=== PATIENT | female | born 1930 ===

== ENCOUNTER 2019-03-04 11:57 | Inpatient (IN) | payer MEDICARE, OTHER ==
--- NOTE | 2019-03-04 12:17 | ED PDOC ---
Arrival/HPI - General Time Seen by Provider: 03/04/19 12:04 - History of Present Illness Narrative History of Present Illness (Text): 88 y/o F c PMHx dementia, HTN, HLD p/w shortness of breath prior to arrival. EMS was called with report that patient was gasping for breath. Upon their arrival, EMS reports no shortness of breath and normal vital signs. Patient currently denies any shortness of breath or pain. Family/Social History Family/Social History: No Known Family HX Allergies/Home Meds Allergies/Adverse Reactions: Allergies No Known Allergies Allergy (Verified 03/04/19 12:12) Home Medications: Home Meds Medication Instructions Recorded Confirmed Acetaminophen [Tylenol 325mg tab] 325 mg PO Q4 PRN 03/04/19 03/04/19 Atorvastatin [Lipitor] 20 mg PO HS 03/04/19 03/04/19 Docusate [Colace] 100 mg PO DAILY 03/04/19 03/04/19 Donepezil [Aricept] 10 mg PO HS 03/04/19 03/04/19 Famotidine [Pepcid] 20 mg PO HS 03/04/19 03/04/19 Lisinopril [Zestril] 10 mg PO DAILY 03/04/19 03/04/19 Melatonin 5 mg PO HS 03/04/19 03/04/19 Multivitamin [Daily Keira] 1 tab PO DAILY 03/04/19 03/04/19 Sennosides [Senna] 8.6 mg PO HS 03/04/19 03/04/19 amLODIPine [Norvasc] 10 mg PO DAILY 03/04/19 03/04/19 Review of Systems - Review of Systems Systems not reviewed;Unavailable: Dementia Physical Exam - Physical Exam Narrative Physical Exam (Text): gen nad head nc/at eyes perrl ent mmm neck supple chest no tenderness cv reg rate lungs cta b/l, no wheezing abd soft, nt back no cva tenderness extremities no asymmetrical edema skin no rash neuro alert Vital Signs Temp Pulse Resp BP Pulse Ox 03/04/19 12:08 98.7 F 65 20 100/56 L 98 Medical Decision Making ED Course and Treatment: ekg nsr 63 bpm, no st/t wave changes. differential includes but not limited to chf, pneumonia, acs. copd/asthma/pe unlikely based on physical exam, resolution, and diagnostic tests thus far. 03/04/19 14:14 03/04/19 12:13 Chest X-ray, reviewed by radiologist: IMPRESSION: No active disease. Dr. Shaw saw patient in ED at bedside. Accepts patient to her service with consultation with Dr. Brush for r/o ACS. - RAD Interpretation Radiology Orders: 03/04/19 12:13 CHEST PORTABLE [RAD] Stat Disposition/Present on Arrival - Present on Arrival Any Indicators Present on Arrival: No - Disposition Have Diagnosis and Disposition been Completed?: Yes Diagnosis: Dyspnea, Atypical chest pain Disposition: HOSPITALIZED Disposition Time: 15:00 Patient Plan: Observation, Telemetry Condition: STABLE
--- NOTE | 2019-03-04 13:15 | RAD ---
Date of service: 03/04/2019 HISTORY: dyspnea COMPARISON: No prior. TECHNIQUE: 1 view obtained. FINDINGS: LUNGS: No active pulmonary disease. PLEURA: No significant pleural effusion identified, no pneumothorax apparent. CARDIOVASCULAR: Aortic calcification Normal cardiac size. No pulmonary vascular congestion. OSSEOUS STRUCTURES: No significant abnormalities. VISUALIZED UPPER ABDOMEN: Normal. OTHER FINDINGS: None. IMPRESSION: No active disease.
[2019-03-04 13:21] LABS: BASO # 0.03 K/mm3 (0.0-2.0); BASO % 0.3 % (0.0-3.0); EOS # 0.2 (0.0-0.7); EOS % 2.3 % (1.5-5.0); HEMOGLOBIN 12.6 g/dL (12.0-16.0); LYMPH # 3.3 (1.2-3.4); LYMPH % 36.2 % (22.0-35.0); MEAN CORPUSCULAR HEMOGLOBIN 26.5 pg (25.0-35.0); MEAN CORPUSCULAR HGB CONC 31.6 g/dl (31.0-37.0); MEAN PLATELET VOLUME 9.8 fl (7.0-11.0); MONO # 0.5 (0.1-0.6); RBC 4.75 10^6/uL (3.5-6.1); RED CELL DISTRIBUTION WIDTH 15.9 % (11.5-14.5)
[2019-03-04 13:25] LABS: INR 0.99; PARTIAL THROMBOPLASTIN TIME 23.1 Seconds (26.9-38.3); PROTHROMBIN TIME 11.2 SECONDS (9.4-12.5)
[2019-03-04 13:27] LABS: ALBUMIN 3.4 g/dL (3.0-4.8); ALT/SGPT 35 U/L (7-56); AST/SGOT 22 U/L (14-36); BLOOD UREA NITROGEN 19 mg/dL (7-21); CALCIUM 9.4 mg/dL (8.4-10.5); GFR NON-AFRICAN AMERICAN > 60
[2019-03-04 13:38] LABS: B-TYPE NATRIURETIC PEPTIDE 176 pg/mL (0-450); TROPONIN I < 0.01 ng/mL
[2019-03-04 14:30] LABS: URINE BILIRUBIN NEGATIVE (NEGATIVE); URINE BLOOD NEGATIVE (NEGATIVE); URINE GLUCOSE (UA) NEGATIVE (NEGATIVE); URINE LEUKOCYTE ESTERASE LARGE Leu/uL (NEGATIVE); URINE PROTEIN NEGATIVE mg/dL (<30 mg/dL); URINE UROBILINOGEN 0.2 E.U./dL (<1 E.U./dL)
[2019-03-04 14:33] LABS: URINE APPEARANCE SL CLOUDY (CLEAR); URINE COLOR YELLOW (YELLOW)
[2019-03-04 14:42] LABS: URINE BACTERIA LARGE /hpf; URINE EPITHELIAL CELLS 0 - 2 /hpf (0-5); URINE RBC 0 - 2 /hpf (0-2); URINE WBC 25 - 30 /hpf (0-6)
[2019-03-04 15:32] VITALS: BMI 38.3
[2019-03-04] MEDS: Insulin Reg-LOW-Coverage SC SCH ×2 (16:50→22:30)
--- NOTE | 2019-03-04 19:01 | CARD ---
APPROVED REPORT Date of service: 03/04/2019 EKG Measurement Heart [id number] <Conclusion> Normal sinus rhythm Normal ECG
[2019-03-04] MEDS ORDERED: Pneumococcal 23-Valent Vaccine IM ONE (21:01)
[2019-03-04] MEDS: MELATONIN 5 MG PO SCH (22:30)
--- NOTE | 2019-03-05 03:20 | HP ---
DATE OF EXAM: 03/04/2019 CHIEF COMPLAINTS: Shortness of breath. HISTORY OF PRESENT ILLNESS: Mrs. Elaine Alfonso is an 88-year-old female with past medical history of hypertension, hypercholesterolemia, shortness of breath; arrived by EMS because the patient was gasping for breathing. Upon the arrival, EMS reported that no shortness of breath and normal vitals. The patient currently denies any shortness of breath, no chest pain. No hematuria, no hematochezia. No headache, no dizziness. The patient is a very poor historian. ALLERGIES: THE PATIENT IS NOT ALLERGIC WITH ANY MEDICATIONS. HOME MEDICATIONS: Tylenol, Lipitor, Colace, Aricept, Pepcid, Zestril, and melatonin. HABITS: No smoking. No drugs. No ethanol. FAMILY HISTORY: Father and mother noncontributory. REVIEW OF SYSTEMS: The patient was seen and examined at the bedside in the emergency room, looking comfortable. No fever, no chills. No hematuria or hematochezia. No headache, no dizziness. No chest pain, no palpitation. PHYSICAL EXAMINATION: VITAL SIGNS: Temperature 98.7, pulse 65, respiratory rate 20, blood pressure 100/56, pulse oximetry 98. HEENT: Head: Normocephalic, atraumatic. Eyes: PERRLA. Extraocular muscles are intact. Conjunctivae clear. Nose patent. NECK: Supple. No carotid bruit. No JVD or thyromegaly. CHEST: Bilaterally symmetrical. HEART: S1 and S2 positive. LUNGS: Clear to auscultation. ABDOMEN: Soft. Bowel sounds present. No organomegaly. EXTREMITIES: No edema, no cyanosis. NEUROLOGIC: The patient is awake and alert. Moving all four extremities. No focal deficits. LABORATORY DATA: White blood cells 9.0, hemoglobin 12.6, hematocrit 39.9, platelets 263. Sodium 141, potassium 5.0, BUN 19, creatinine 0.7, glucose 171, magnesium 2.3. ASSESSMENT AND PLAN: Mrs. Elaine Alfonso is an 88-year-old female with hyperglycemia, hypermagnesemia, nitrites positive, leukocytes positive, looks like she has urinary tract infection. Electrocardiogram was done. History of dementia, diabetes mellitus. Chest x-ray done, no active disease as per Dr. Isael Vilchis. History of hypertension, hypercholesterolemia, chronic obstructive pulmonary disease, asthma, came in with dyspnea. We admitted the patient. We will call Pulmonary consult. Restarted his home medications; the patient is getting Aricept for dementia, he started that; aspirin, he started. Put the patient on the sliding scale. Continue Colace for constipation, atorvastatin for hypercholesterolemia, melatonin for insomnia, and Pepcid for gastrointestinal prophylaxis, out of bed, physical therapy. We will follow up. Narda Shaw MD
[2019-03-05 07:24] LABS: HEMOGLOBIN 12.2 g/dL (12.0-16.0); MEAN CORPUSCULAR HEMOGLOBIN 25.7 pg (25.0-35.0); MEAN CORPUSCULAR HGB CONC 30.7 g/dl (31.0-37.0); MEAN PLATELET VOLUME 9.6 fl (7.0-11.0); RBC 4.74 10^6/uL (3.5-6.1); WHITE BLOOD COUNT 7.5 10^3/uL (4.5-11.0)
[2019-03-05 07:39] LABS: BLOOD UREA NITROGEN 18 mg/dL (7-21); GFR NON-AFRICAN AMERICAN > 60; HDL CHOLESTEROL 42 mg/dL (29-60); IRON 58 ug/dL (45-180); LIPASE 32 U/L (23-300)
[2019-03-05 07:47] LABS: B-TYPE NATRIURETIC PEPTIDE 147 pg/mL (0-450)
[2019-03-05 07:48] LABS: % IRON SATURATION 19 % (20-55); TOTAL IRON BINDING CAPACITY 305 ug/dL (265-497)
[2019-03-05 07:49] LABS: LDL CHOLESTEROL 41 mg/dL (0-129)
[2019-03-05] MEDS: Insulin Reg-LOW-Coverage SC SCH ×3 (08:44→17:37)
[2019-03-05] MEDS ORDERED: Albuterol-Ipratrop 3 mg / 0.5 (3 ml) UD IH PRN (09:26)
[2019-03-05] MEDS: Enoxaparin 40 mg Syringe SC SCH (11:56)
[2019-03-05] MEDS: MULTIVITAMIN PO SCH (11:57)
[2019-03-05 12:23] LABS: FOLATE > 20.0 ng/mL
--- NOTE | 2019-03-05 15:38 | CON ---
DATE: 03/05/2019 PULMONARY CONSULT NOTE REFERRING PHYSICIAN: Dr. Narda Shaw. REASON FOR CONSULT: Shortness of breath and chronic lung disease. HISTORY OF PRESENT ILLNESS: This is an 88-year-old female, with past medical history significant for dementia, hypertension, hyperlipidemia, asthma, chronic obstructive pulmonary disease, hypercholesterolemia, and hypertension, who came to the emergency room due to reports that the patient was gasping for air. Upon arrival of EMS, they noted the patient had no shortness of breath and had normal vital signs. Daughter was present in room this morning during assessment and states that the patient was recently treated at [facility] for pneumonia where she was given antibiotics. It is unclear whether or not the patient completed antibiotic therapy. Daughter also reports that the patient was sleeping when she started gasping for air. Currently, no complaints of shortness of breath, chest pain, abdominal pain, nausea, or vomiting. The patient is a poor historian. ALLERGIES: NO KNOWN DRUG ALLERGIES. FAMILY HISTORY: No significant cardiopulmonary disease reported. SOCIAL HISTORY: Nonsmoking. No EtOH abuse. No illicit drug use. REVIEW OF SYSTEMS: Unable to be done. The patient is a poor historian, but no hemoptysis, hematemesis, hematuria, diarrhea, or leg swelling reported from staff or family member. MEDICATIONS: Reviewed. Tylenol 325 every 4 hours p.r.n., Norvasc 10 mg daily, Lipitor 20 mg at bedtime, Colace 100 mg daily, Aricept 10 mg at bedtime, Lovenox 40 mg subcutaneous daily, Pepcid 20 mg at bedtime, Humulin R sliding scale a.c. and at bedtime, lisinopril 10 mg daily, melatonin 5 mg at bedtime, multivitamin 1 tab daily, and Senokot 8.6 at bedtime. PHYSICAL EXAMINATION: GENERAL: No acute distress. VITAL SIGNS: Blood pressure 120/75, pulse 66, temperature 98.2, and oxygen saturation 99% on room air. HEENT: Moist mucous membranes. Crowded airway. NECK: Supple. No JVD. Short and thick. RESPIRATORY: Clear bilaterally. CARDIOVASCULAR: S1 and S2. ABDOMEN: Soft and nontender. No distension. No organomegaly. EXTREMITIES: No bilateral lower extremity edema. The patient verbalizing pain upon palpation to bilateral lower extremity. NEUROLOGIC: Asleep; easily arousable. LABORATORY DATA: Reviewed. WBC 7.5, RBC 4.74, hemoglobin 12.2, hematocrit 39.8, and platelets 247. PT 11.2, INR 0.99, and APTT 23.1. Sodium 144, potassium 4.7, chloride 110, carbon dioxide 28, anion gap 11, BUN 18, creatinine 0.8, GFR greater than 60, POC glucose 116, random glucose 101, hemoglobin A1c 8.8, calcium 9, iron 58, TIBC 305, percent saturation 19, proBNP 147, triglycerides 99, cholesterol 101, LDL cholesterol 41, HDL cholesterol 42, lipase 32, vitamin B12 of 705, folate greater than 20, and TSH 2.38. Urinalysis shows urine nitrate positive, urine leukocyte esterase large, and urine WBC 25-30. Chest x-ray; no active disease. EKG shows normal sinus rhythm. IMPRESSION AND PLAN: The patient with urinalysis which appears possibly the urinary tract infection, has history of dementia, diabetes mellitus, chronic obstructive pulmonary disease, asthma, hypertension, hypercholesterolemia, we will place the patient is on p.r.n. inhaled bronchodilators for shortness of breath. Per family, while sleeping the patient has this chocking or gasping for air episode that could possibly signifies sleep apnea in this patient. We do recommend the patient have sleep study as outpatient in the meanwhile. Sleep apnea precautions, head of bed elevated at 45 degrees. We will order venous Doppler to bilateral lower extremities to rule out deep venous thrombosis. We will order D-dimer to be done. We will place the patient on deep venous thrombosis prophylaxis and Lovenox. Continue gastric prophylaxis. The patient was seen and examined with Dr. Mccarty. Discussed assessment and plan as described above. The patient was seen and examined with Mario Conley, nurse practitioner. Discussed assessment and plan as described above. Thank you for this consult. We will follow with you. Yael Martin APN Carmelina Mccarty MD MTDD
[2019-03-05] MEDS: MELATONIN 5 MG PO SCH (21:22)
--- NOTE | 2019-03-06 00:52 | PN ---
DATE: 03/05/2019 SUBJECTIVE: The patient was seen and examined at the bedside on 03/05/2019. Looking comfortable. Daughter was sitting on the bedside. No fever. No chills. No hematuria. No hematochezia. No headache. No dizziness. No chest pain. No palpitations. PHYSICAL EXAMINATION: VITAL SIGNS: Temperature 98.2, pulse 60, blood pressure 120/75, respiratory rate 19. HEENT: Head: Normocephalic, atraumatic. Eyes: PERRLA. Extraocular muscles intact. Conjunctiva clear. Nose patent. Mucous membranes moist. NECK: Supple. No carotid bruits. No JVD or thyromegaly. CHEST: Bilaterally symmetrical. HEART: S1 and S2 positive. LUNGS: Clear to auscultation. ABDOMEN: Soft. Bowel sounds present. No organomegaly. EXTREMITIES: No edema. No cyanosis. NEUROLOGICAL: The patient is awake and alert. Moving all four extremities. No focal deficits. MEDICATIONS: Aricept, Colace, insulin, Lipitor, Lovenox, melatonin, Pepcid, Senokot, Tylenol, Zestril. LABORATORY DATA: White blood cells 7.5, hemoglobin 12.2, hematocrit 39.8, platelets 247. Glucose 241, 183. ASSESSMENT AND PLAN: Mrs. Elaine Alfonso is an 88-year-old lady with hyperglycemia, uncontrolled diabetes mellitus, hemoglobin A1c is 8.8, iron deficiency, proteinuria, urinary tract infection. cultures were done, results are pending. History of dementia, also sleep apnea syndrome, hypertension, hypercholesterolemia. the patient is on bronchodilators. Appreciated the sleep specialist and wire fence builder's input. They ordered D-dimer. Gastrointestinal and deep venous thrombosis prophylaxis. Repeat labs. We will follow up. Narda Shaw MD DOMINICK
[2019-03-06] MEDS: Insulin Reg-LOW-Coverage SC SCH ×4 (08:29→22:26)
[2019-03-06] MEDS: Enoxaparin 40 mg Syringe SC SCH (09:47)
[2019-03-06] MEDS: MULTIVITAMIN PO SCH (09:51)
[2019-03-06] MEDS ORDERED: cefTRIAXone 1 gm 1 GM/100 ML BAG IVPB SCH (10:00)
--- NOTE | 2019-03-06 11:07 | US ---
HISTORY: Leg pain and swelling. Evaluate for DVT PHYSICIAN(S): Rory Herrmann MD. TECHNIQUE: Duplex sonography and color-flow Doppler with graded compression were used to evaluate the deep venous systems of both lower extremities. Imaging is limited due to the patient's inability to cooperate FINDINGS: The visualized deep venous systems of both lower extremities are sonographically normal and compressible. Normal wave forms and augmentation are seen. There is no sonographic evidence for deep venous thrombosis in the visualized segments of both lower extremities. IMPRESSION: No sonographic evidence for deep venous thrombosis in the visualized segments of both lower extremities. Limited study.
[2019-03-06] MEDS ORDERED: Sodium Chloride 0.9% 500 ML IV STA (12:11)
--- NOTE | 2019-03-06 12:44 | CP.PCM.PCO ---
Additional Comments - Additional Comments Additional Comments: hypotensive fluid challenge, CTA, Xrays pending, Rocephin [id number], repeat labs in am
[2019-03-06] MEDS ORDERED: Iohexol 350 MG/100 ML VIAL ONE (12:50)
[2019-03-06] MEDS ORDERED: Sodium Chloride 0.9% 1,000 ML IV SCH (13:30)
[2019-03-06 14:12] VITALS: O2SAT 100
--- NOTE | 2019-03-06 14:32 | PN ---
DATE: 03/06/2019 REFERRING PHYSICIAN: Narda Shaw MD SUBJECTIVE: The patient is seen lying in bed, awake, verbal, confused. Nursing staff reports the patient noted hypotensive. IV fluids pushed. The patient also with positive D-dimer. CTA ordered to be done today. No hemoptysis, hematosis, hematuria, diarrhea, leg swelling reported. OBJECTIVE: VITAL SIGNS: Blood pressure 70/40, pulse 50, temperature 97.6, oxygen saturation 96% on nasal cannula. GENERAL: No acute distress. HEENT: Moist mucous membranes. Crowded airway. NECK: Supple. No JVD. Short and thick. RESPIRATORY: Clear bilaterally. CARDIOPULMONARY: S1 and S2. ABDOMEN: Soft and nontender. No distention. No organomegaly. EXTREMITIES: No bilateral lower extremity edema. NEUROLOGIC: Awake, alert, verbal. Confused. MEDICATIONS: Reviewed. Tylenol 325 every 4 hours p.r.n. mild pain, DuoNeb 3 mL inhalation every 6 hours p.r.n., Norvasc 10 mg daily, Lipitor 20 mg at bedtime, Rocephin 1 g daily, Colace 100 mg daily, Aricept 10 mg at bedtime, Lovenox 40 mg subcu daily, Pepcid 20 mg at bedtime, Humulin R sliding scale before meals and at bedtime, lisinopril 10 mg daily, melatonin 5 mg at bedtime, multivitamin one tablet daily, Senokot 8.6 mg at bedtime. LABORATORY DATA: Reviewed. D-dimer 731. POC glucose 193. Urine culture final, E. coli. Extremity ultrasound shows no sonographic evidence for deep venous thrombosis in both lower extremities. IMPRESSION AND PLAN: Urinary tract infection, history of dementia, diabetes mellitus, chronic obstructive pulmonary disease, asthma, hypertension, hypercholesterolemia. Continue p.r.n. inhaled bronchodilators. Continue deep venous thrombosis prophylaxis, gastric prophylaxis. Urine culture shows sensitivity to ceftriaxone. The patient is already on ceftriaxone antibiotics. CTA pending to be done. Do suspect sleep apnea in this patient, recommend sleep study as outpatient. In the meanwhile, sleep apnea precaution, head of bed elevated 45 degrees. Fluid increased on this patient due to hypotensive episode today. No echocardiogram on file for this patient. Will order Echocardiogram to be done to evaluate heart function and for valvular heart disease. Blood pressure noted 126/70 Heart rate 55 after increase in fluids. The patient was seen and examined with Dr. Mccarty. Discussed assessment and plan as described above. The patient was seen and examined with Mario Conley, nurse practitioner. Discussed assessment and plan as described above. Thank you for this consult and we will follow with you. Yael Martin APN Carmelina Mccarty MD MTDLily
[2019-03-06] MEDS: MELATONIN 5 MG PO SCH (22:27)
--- NOTE | 2019-03-07 00:55 | PN ---
This case was discussed with Dr. Shaw she is inagreement with treatment plan. DATE: 03/05/2019 SUBJECTIVE: This is an 88-year-old female, came in with dyspnea. The patient has a past medical history of hypertension, hyperlipidemia, shortness of breath, dementia. Saw the patient today at the bedside. The patient's Malay speaking daughter was at the bedside interpreting for the patient. The patient reports some shortness of breath with exertion. The patient is also reporting generalized pain. Denies chest pain, palpitations, abdominal pain, hematuria, hematochezia, fevers or chills. PHYSICAL EXAMINATION: VITAL SIGNS: Temperature 98.4, pulse rate 50, blood pressure 78/48, respiratory rate of 18. GENERAL: Saw the patient today at the bedside. The patient appears chronically ill. Looking fatigued. HEENT: Normocephalic, atraumatic. PERRLA. Mucous membranes dry. NECK: Supple. No thyromegaly. RESPIRATORY: Clear to auscultation. No wheezing. No rhonchi. CARDIOVASCULAR: S1 and S2. No JVD. ABDOMEN: Soft, distended. No organomegaly. EXTREMITIES: The patient moving all extremities. SKIN: Intact. No edema. NEUROLOGIC: The patient is alert and oriented x2-3. MEDICATIONS: The patient is on DuoNeb, Tylenol, Norvasc, Lipitor, Rocephin 1 g, Colace, Aricept, Lovenox, Pepcid. Accu-Cheks before meals and at nighttime with Humulin R coverage, Zestril, melatonin, multivitamin, Senokot. LABORATORY DATA: Hematology, white blood cell 7.5, hemoglobin 12.2, hematocrit 39.8, platelet count 247. Sodium 144, potassium 4.7, chloride 110, BUN 18, GFR of 60, hemoglobin A1c 8.8, cholesterol 101, triglycerides 99. Reviewed urinalysis, positive for nitrites, positive for leukocyte esterase. Culture pending. INR 0.99, PT 11.2. ASSESSMENT AND PLAN: This is an 88-year-old female, came in with shortness of breath with past medical history of hypertension, dementia, hyperlipidemia. The patient is on albuterol, amlodipine, Lipitor. Gastric and deep venous thrombosis prophylaxis. A1c was 8.8; Accu check before meal and at HS with coverage continued Metformin 500 mg twice a day added to medication list. Urinalysis positive for urinary tract infection IV Abt initiated by ID ceftriaxone 1 g intravenous piggyback daily. The patient's pulse rate was 50, also blood pressure was low, 78/48. Bolus of normal saline 500 mL were administered. The patient's blood pressure now is slightly is better at 126/70. Pulse rate went up to 65. Cardiology is on the case we will repeat labs and follow up with patient. ALL ABOVE NOTED , AGREED WITH TREATMENT PLAN , WILL F/U Kenton Bonilla APN Narda Shaw MD DOMINICK
--- NOTE | 2019-03-07 01:03 | CON ---
DATE: 03/06/2019 CONSULT SERVICE: Cardiology. REASON FOR CONSULTATION: Dyspnea, rule out acute coronary syndrome. BRIEF CLINICAL HISTORY: This is an 88-year-old female who is Occitan speaking. Information obtained from the daughter, Kaia Monroe who is at bedside who says that her past history is significant for hypertension and hyperlipidemia, came in because of shortness of breath. She was reported to be short of breath in the ambulance, but currently the patient is lying flat, not in apparent distress. Patient's daughter denies any chest pain. Denies any palpitations. Denies any leg pain. Denies any abdominal pain. Denies nausea, vomiting, diarrhea, or recent history of chest pain. PAST MEDICAL HISTORY: Significant for hypertension and hyperlipidemia. PAST SURGICAL HISTORY: Nothing significant as per daughter, Kaia Monroe. SOCIAL HISTORY: Denies any smoking, denies any history of alcohol abuse. CURRENT MEDICATIONS: She is taking Tylenol, Lipitor, Colace, Aricept, Pepcid, Zestril, and melatonin. Patient at home was taking amlodipine 10 mg daily, Senna, multivitamin, melatonin, lisinopril, Aricept, Pepcid, Colace, atorvastatin, and acetaminophen. ALLERGIES: NO KNOWN DRUG ALLERGY. REVIEW OF SYSTEMS: As per HPI and negative except as per HPI. PHYSICAL EXAMINATION: GENERAL: Height of the patient 4 feet 11 inches, weight of the patient 160 pounds, body mass index 32 kg/m2. VITAL SIGNS: Temperature afebrile, heart rate 55, blood pressure 126/70. HEENT: PERRLA. Extraocular muscles intact. NECK: Supple. No carotid bruits or thyromegaly. CHEST: Clear to auscultation. HEART: S1 and S2 regular. ABDOMEN: Soft. EXTREMITIES: Clubbing and cyanosis negative. LABORATORY DATA: Blood work up as follows; WBC 7.5, hemoglobin 12.2, hematocrit 39.8, and platelet count 247. Chemistry shows sodium 144, potassium 4.7, chloride 110, carbon dioxide 28, anion gap of 11, BUN 18, and creatinine 0.8. Troponin remains negative at 0.01. EKG showed normal sinus. No acute ST-T wave changes noted. Telemetry shows no arrhythmia. IMPRESSION: An 88-year-old female with a past medical history significant for hypertension, dementia, and hyperlipidemia, brought in with shortness of breath. So far, no evidence of acute mycoardial infarction. On admission, brain natriuretic peptide is 176. Patient is not clinically in failure. No evidence of acute myocardial infarction, though history of hypertension and hyperlipidemia. RECOMMENDATIONS: Resume previous medications. Discontinue telemetry. We will get echo to assess LV function. Patient is scheduled for CT angiogram to rule out any DVT or PE. If patient remains stable, consider discontinuing telemetry and medical management because of the age and overall patient's condition. Information obtained from her daughter, Kaia Monroe who is at the bedside. We will follow with you. Thank you, Dr. Shaw, for providing us the opportunity in taking care of the patient, Elaine Alfonso. Carmelina Ding MD
[2019-03-07] MEDS: Insulin Reg-LOW-Coverage SC SCH ×3 (08:09→18:12)
--- NOTE | 2019-03-07 08:30 | RAD ---
Date of service: 03/06/2019 HISTORY: pain COMPARISON: No prior. TECHNIQUE: 3 views obtained. FINDINGS: BONES: Alignment maintained. No fracture. DISC SPACES: Multilevel disc degeneration with disc space narrowing SOFT TISSUES: Normal. OTHER FINDINGS: None. IMPRESSION: No evidence of compression fracture
--- NOTE | 2019-03-07 09:44 | CT ---
Date of service: 03/06/2019 PROCEDURE: CT Chest with contrast (Pulmonary Angiogram) HISTORY: elevated D-dimer, PE protocal COMPARISON: None available. TECHNIQUE: Axial computed tomography images were obtained of the chest in the pulmonary arterial phase of enhancement. Coronal and sagittal reformatted images were created and reviewed. Intravenous contrast dose: Radiation dose: Total exam DLP = 430.6 mGy-cm. This CT exam was performed using one or more of the following dose reduction techniques: Automated exposure control, adjustment of the mA and/or kV according to patient size, and/or use of iterative reconstruction technique. FINDINGS: PULMONARY ARTERIES: Unremarkable. No pulmonary embolism. AORTA: No acute findings. No thoracic aortic aneurysm. Aortic calcification LUNGS: Unremarkable. No nodule, mass or pulmonary consolidation. PLEURAL SPACES: Unremarkable. No effusion or pneumothorax. HEART: Unremarkable. No cardiomegaly. No significant pericardial effusion. LYMPH NODES: No lymphadenopathy. BONES, CHEST WALL: Unremarkable. No fracture or destructive lesion OTHER FINDINGS: There is a 3 cm simple cyst in the spleen. Mild fatty infiltration of the liver. The report concurs with the preliminary [facility] report IMPRESSION: Unremarkable CT pulmonary angiogram. No pulmonary embolus.
[2019-03-07] MEDS: MULTIVITAMIN PO SCH (09:55)
[2019-03-07] MEDS: cefTRIAXone 1 gm 1 GM/100 ML BAG IVPB SCH (09:58)
[2019-03-07] MEDS: Enoxaparin 40 mg Syringe SC SCH (09:58)
[2019-03-07] MEDS ORDERED: Cefpodoxime (Vantin) 200 mg Tab PO SCH ×2 (10:00)
--- NOTE | 2019-03-07 12:55 | PN ---
DATE: 03/07/2019 PULMONARY PROGRESS NOTE REFERRING PHYSICIAN: Narda Shaw MD SUBJECTIVE: The patient is seen lying in bed, no acute distress. No overnight events reported. No headache, rhinitis, cough, shortness of breath, chest pain, abdominal pain, nausea, vomiting, diarrhea, leg pain, leg swelling reported. OBJECTIVE: GENERAL: No acute distress. VITAL SIGNS: Blood pressure 109/63, pulse 54, temperature 97.5. HEENT: Moist mucous membranes. Crowded airway. NECK: Supple. No JVD. Short and thick. RESPIRATORY: Fair airflow bilaterally. CARDIOVASCULAR: S1, S2. ABDOMEN: Soft, nontender. No distention. No organomegaly. EXTREMITIES: No bilateral lower extremity edema. NEUROLOGIC: Awake, alert, verbal. MEDICATIONS: Reviewed. Tylenol 325 every 4 hours p.r.n. mild pain, DuoNeb 3 mL inhalation every 6 hours p.r.n., Norvasc 10 mg daily, Lipitor 20 mg at bedtime, Rocephin 1 g daily, Colace 100 mg daily, Aricept 10 mg at bedtime, Lovenox 40 mg subcu daily, Pepcid 20 mg at bedtime, Humulin R sliding scale a.c. and at bedtime, lisinopril 10 mg daily, metformin 500 mg twice a day, melatonin 5 mg at bedtime, multivitamin one tab daily, Senokot 8.6 mg p.o. at bedtime, sodium chloride 0.9% 1000 mL at 40 mL per hour. LABORATORY DATA: Reviewed. Blood cultures preliminary no growth after 24 hours. Thoracic spine x-ray shows no evidence of compression fracture. Chest CT unremarkable, no pulmonary embolism. IMPRESSION AND PLAN: Urinary tract infection, history of dementia, diabetes mellitus, chronic obstructive pulmonary disease, asthma, hypertension, hypercholesterolemia. We do suspect sleep apnea in this patient. Pulmonary point of view, continue as needed inhaled bronchodilators. Continue deep venous thrombosis prophylaxis, gastric prophylaxis. Pending echocardiogram to be done. If echo is normal, recommend getting the patient out of bed to chair. Discharge planning. Sleep apnea precaution, head of bed elevated at 45 degrees. The patient was seen and examined with Dr. Mccarty. Discussed assessment and plan as described above. The patient was seen and examined by Yael Martin, nurse practitioner. Discussed assessment and plan as described above. Thank you for this consult. We will follow with you. Yael Martin APN Carmelina Mccarty MD
--- NOTE | 2019-03-07 13:39 | PN ---
DATE: 03/07/2019 REASON FOR CONSULTATION AND FOLLOWUP: Dyspnea, rule out acute coronary syndrome. SUBJECTIVE: The patient denies any chest pain, shortness of breath or any palpitation. OBJECTIVE: GENERAL: Not in apparent distress. Lying flat on the bed. VITAL SIGNS: Temperature afebrile. Heart rate 54 and blood pressure 109/63. HEENT: PERRLA intact. NECK: Supple. No carotid bruits. No thyromegaly. CHEST: Clear to auscultation. HEART: S1 and S2, regular. ABDOMEN: Soft. EXTREMITIES: Clubbing and cyanosis, negative. LABORATORY DATA: Blood workup as follows, WBC 7.5, hemoglobin 12.2, hematocrit 39.8 and platelet count 247. Chemistry shows sodium 144, potassium 4.2, chloride 110, carbon dioxide 28, anion gap of 11, BUN 18, creatinine 0.8 and TSH 2.38. IMPRESSION: An 88-year-old female with past medical history significant for hypertension, dementia, hyperlipidemia shortness of breath, so far no evidence of acute myocardial infarction. BNP is elevated. On admission, the patient is not clinically in congestive heart failure, no evidence of acute myocardial infarction. No evidence of congestive heart failure and hypertension. No history of acute myocardial infarction. No history of congestive heart failure. History of hypertension and hyperlipidemia. RECOMMENDATION: Continue amlodipine, she was started but it was held because of low blood pressure. Continue antibiotic. Continue IV fluid. We will hold lisinopril and hold amlodipine. Continue DVT prophylaxis. Discuss with daughter and explained the patient's conditions. The patient had CT angio yesterday done to rule out PE was unremarkable for CT angio for PE. Continue supportive care. We will hold hypertensive medication because of running low blood pressure. Continue rehab. Awaiting for echo to be completed. We will follow with you. Consider to discontinue telemetry. Carmelina Ding MD
--- NOTE | 2019-03-07 20:45 | PN ---
DATE: 03/07/2019 The patient was seen and examined at the bedside on 03/07/2019. SUBJECTIVE: Looking comfortable, sleepy and arousable. No chest pain. No headache or dizziness. PHYSICAL EXAMINATION: VITAL SIGNS: Blood pressure 109/63, pulse 54, temperature 98.6, and respiratory rate 18. HEENT: Head is normocephalic and atraumatic. Eyes; PERRLA. Extraocular muscles intact. Conjunctiva clear. Nose patent. Mucous membranes moist. NECK: Supple. No carotid bruits. No JVD or thyromegaly. CHEST: Bilaterally symmetrical. HEART: S1 and S2 positive. LUNGS: Clear to auscultation. ABDOMEN: Soft. Bowel sounds present. No organomegaly. EXTREMITIES: No edema. No cyanosis. NEUROLOGICAL: The patient is awake and alert. Moving all four extremities. No focal deficits. MEDICATIONS: Tylenol, DuoNeb, Norvasc, Lipitor, Colace, Aricept, Lovenox, Pepcid, insulin, lisinopril, metformin, melatonin, and Senokot. LABORATORY DATA: We do not have recent labs today, but I reviewed old labs. ASSESSMENT AND PLAN: Ms. Elaine Alfonso is an 88-year-old lady with urinary tract infection, getting antibiotics; history of dementia; diabetes mellitus; chronic obstructive pulmonary disease, obesity, bedridden, asthma, hypertension, hypercholesterolemia, and sleep apnea syndrome. Continue inhaled bronchodilators, deep venous thrombosis and gastric prophylaxis. Need good physical therapy. Pulmonary is suggesting echocardiography. Actually echocardiogram was done, results are pending. Chest CT done, the is fine. X-ray done. Getting Rocephin IVP. We will follow up. Narda Shaw MD
[2019-03-07] MEDS: MELATONIN 5 MG PO SCH (22:11)
[2019-03-08] MEDS: Insulin Reg-LOW-Coverage SC SCH ×5 (03:25→16:25)
[2019-03-08 06:11] VITALS: RESP 20
[2019-03-08 07:29] LABS: HEMOGLOBIN 11.6 g/dL (12.0-16.0); MEAN CELL VOLUME 84.1 fl (80.0-105.0); MEAN CORPUSCULAR HGB CONC 30.9 g/dl (31.0-37.0); MEAN PLATELET VOLUME 9.8 fl (7.0-11.0); RBC 4.47 10^6/uL (3.5-6.1); RED CELL DISTRIBUTION WIDTH 15.7 % (11.5-14.5); WHITE BLOOD COUNT 8.6 10^3/uL (4.5-11.0)
[2019-03-08 08:07] LABS: BLOOD UREA NITROGEN 19 mg/dL (7-21); CALCIUM 8.8 mg/dL (8.4-10.5); GFR NON-AFRICAN AMERICAN > 60
[2019-03-08] MEDS: cefTRIAXone 1 gm 1 GM/100 ML BAG IVPB SCH (09:45)
[2019-03-08] MEDS: Enoxaparin 40 mg Syringe SC SCH (09:45)
[2019-03-08 12:20] VITALS: BP 157/62; PULSE 66; TEMP 98.2
[2019-03-08] MEDS: MULTIVITAMIN PO SCH (12:31)
--- NOTE | 2019-03-08 13:38 | PN ---
DATE: 03/08/2019 PULMONARY PROGRESS NOTE REFERRING PHYSICIAN: Narda Shaw MD. SUBJECTIVE: The patient seen lying in bed. No acute distress. No overnight events reported. Staff utilized for translation. The patient reports feeling well and wanting to go home. No headache, rhinitis, cough, shortness of breath, chest pain, abdominal pain, nausea, vomiting, diarrhea, leg pain, leg swelling reported. OBJECTIVE: GENERAL: No acute distress. VITAL SIGNS: Blood pressure 157/62, pulse 66, and temperature 98.2. HEENT: Moist mucous membranes. Crowded airway. NECK: Supple. No JVD. Short and thick. RESPIRATORY: Fair airflow bilaterally. CARDIOVASCULAR: S1 and S2. ABDOMEN: Soft and nontender. No distention. No organomegaly. EXTREMITIES: No bilateral lower extremity edema. NEUROLOGIC: Awake, alert, and verbal. Following commands. MEDICATIONS: Reviewed. Tylenol 325 mg every 4 hours p.r.n., DuoNeb 3 mL inhalation every 6 hours p.r.n., Norvasc 10 mg daily, Lipitor 20 mg at bedtime, Rocephin 1 g daily, Colace 100 mg daily, Aricept 10 mg at bedtime, Lovenox 40 mg subcutaneously daily, Pepcid 20 mg at bedtime, Humulin R sliding scale a.c. and at bedtime, lisinopril 10 mg daily, metformin 500 mg twice a day, melatonin 5 mg at bedtime, multivitamin one tablet daily, Senokot 8.6 mg at bedtime, and sodium chloride 0.9% at 1000 mL at 40 mL per hour. LABORATORY DATA: Reviewed. WBC 8.6, RBC 4.57, hemoglobin 11.6, hematocrit 37.6, and platelet count 274. Sodium 140, potassium 4.3, chloride 108, carbon dioxide 20, anion gap 8, BUN 19, creatinine 0.7, GFR greater than 60, POC glucose 207, and random glucose 196. Calcium 8.8. Blood culture preliminary no growth after 48 hours. Echocardiogram report pending. IMPRESSION AND PLAN: Urinary tract infection, history of dementia, diabetes mellitus, chronic obstructive pulmonary disease, asthma, hypertension, hypercholesterolemia, and suspected sleep apnea syndrome. Pulmonary point of view, continue as needed inhaled bronchodilators, deep venous thrombosis prophylaxis, and gastric prophylaxis. Echocardiogram report pending. If echo is normal, the patient is clear from pulmonary prospective. Recommend discharge planning. Physical therapy. Out of bed to chair. Sleep apnea precautions, head of bed elevated 45 degrees. We recommend this patient to have sleep study as outpatient. The patient was seen and examined with Dr. Mccarty. Discussed assessment and plan as described above. The patient was seen and examined by Yael Martin, nurse practitioner. Discussed assessment and plan as described above. Thank you for this consult. We will follow with you. Yael Martin APN Carmelina Mccarty MD [place]
--- NOTE | 2019-03-08 13:48 | PN ---
DATE: 03/08/2019 REASON FOR CONSULTATION AND FOLLOWUP: Dyspnea, rule out acute coronary syndrome. SUBJECTIVE: The patient denies any chest pain, shortness of breath, any palpitation. OBJECTIVE: GENERAL: Not in apparent distress. Lying flat on the bed. She is getting ready for breakfast. VITAL SIGNS: Temperature afebrile. Heart rate 60 and blood pressure 148/75. HEENT: PERRLA. Extraocular muscles intact. NECK: Supple. No carotid bruits. No thyromegaly. CHEST: Clear to auscultation. HEART: S1 and S2, regular. ABDOMEN: Soft. EXTREMITIES: Clubbing and cyanosis, negative. LABORATORY DATA: WBC 8.6, hemoglobin hematocrit 37.6 and platelet count 274. Chemistry shows sodium 140, potassium 4.0 carbon dioxide 28, anion gap of 8, BUN 19 and creatinine 0.7. IMPRESSION: An 88-year-old female with past medical history significant for hypertension, dementia, hyperlipidemia, shortness of breath. So far, no evidence of acute myocardial infarction . The patient is clinically not congestive heart failure. No evidence of acute myocardial infarction. No evidence of congestive heart failure clinically, history of hypertension, hyperlipidemia. RECOMMENDATIONS: Continue amlodipine. Continue DVT prophylaxis. Followup echo result. Continue medical treatment. The patient is bedridden. No evidence of acute IA. If echo remains stable, we will discontinue telemetry. Consider discharge planning. Discuss with the daughter day before yesterday. Carmelina Ding MD
--- NOTE | 2019-03-08 19:45 | CARD ---
APPROVED REPORT Date of service: 03/07/2019 EXAM: Two-dimensional and M-mode echocardiogram with Doppler and color Doppler. INDICATION LVFX, R/O VALVULAR DISEASE 2D DIMENSIONS Left Atrium (2D)3.8 (1.6-4.0cm)IVSd1.0 (0.7-1.1cm) LVDd3.9 (3.9-5.9cm)PWd1.1 (0.7-1.1cm) LVDs2.8 (2.5-4.0cm)FS (%) 28.3 % LVEF (%)55.3 (>50%) M-Mode DIMENSIONS Aortic Root3.40 (2.2-3.7cm)Aortic Cusp Exc.1.60 (1.5-2.0cm) Aortic Valve AoV Peak Mvrrwglp718.0cm/Heike Peak GR.9mmHg Mitral Valve MV E Eibihlkn50.3cm/sMV A Ykfisfjj651.0cm/sE/A ratio0.9 TDI Lateral E' Peak V7.31cm/sMedial E' Peak V6.04cm/sE/Lateral E'13.2 E/Medial E'15.9 Pulmonary Valve PV Peak Icrzqqsc98.9cm/sPV Peak Grad.3mmHg Tricuspid Valve TR Peak Bsvsshoi143rm/sRAP [id number] Peak Gr.38mmHg [id number] LEFT VENTRICLE The left ventricle is normal size. There is normal left ventricular wall thickness. The left ventricular function is normal.EF-55% There is normal LV segmental wall motion. Transmitral Doppler flow pattern is Grade III-reversible restrictive diastolic dysfunction. No left ventricle thrombus noted on this study. There is no ventricular septal defect visualized. There is no left ventricular aneurysm. There is no mass noted in the left ventricle. RIGHT VENTRICLE The right ventricle is normal size. There is normal right ventricular wall thickness. The right ventricular systolic function is normal. ATRIA The left atrium size is normal. The right atrium size is normal. The interatrial septum is intact with no evidence for an atrial septal defect. AORTIC VALVE The aortic valve is calcified but opens well. There is trace aortic regurgitation. There is no aortic valvular stenosis. There is no aortic valvular vegetation. MITRAL VALVE The mitral valve is thickened but opens well. Mitral regurgitation is mild. There is no mitral valve stenosis. There is no evidence of mitral valve prolapse. TRICUSPID VALVE The tricuspid valve leaflets are thickened , but open well. There is mild tricuspid regurgitation.RVSP-48 mmof hg. There is mild pulmonary hypertension. There is no tricuspid valve stenosis. There is no tricuspid valve prolapse or vegetation. PULMONIC VALVE The pulmonary valve is normal in structure. There is trace pulmonic valvular regurgitation. There is no pulmonic valvular stenosis. GREAT VESSELS The aortic root is normal in size. The ascending aorta is normal in size. The pulmonary artery is normal. The IVC is normal in size and collapses >50% with inspiration. PERICARDIAL EFFUSION There is no pleural effusion. There is no pericardial effusion. <Conclusion> The left ventricle is normal size. There is normal left ventricular wall thickness. There is trace aortic regurgitation. Mitral regurgitation is mild. There is mild tricuspid regurgitation.RVSP-48 mmof hg. There is mild pulmonary hypertension. There is trace pulmonic valvular regurgitation. The IVC is normal in size and collapses >50% with inspiration. There is no pericardial effusion.
== END 2019-03-08 16:51 | DRG 690 ==
LOC: ED 11:57 → ERH 15:28 → 2RNO 17:30 → OBSVTOIN 03-05 19:35
PROVIDERS: ADMIT Internal Medicine; ATTEND Internal Medicine
PROC: 05H633Z Insertion of Infusion Device into Left Subclavian Vein, Percutaneous Approach (ICD-10-PCS; principal; 2019-03-06)
PROC: 3E03329 Introduction of Other Anti-infective into Peripheral Vein, Percutaneous Approach (ICD-10-PCS; 2019-03-06)
DX: N39.0 Urinary tract infection, site not specified (principal); B96.20 Unspecified Escherichia coli [E. coli] as the cause of diseases classified elsewhere; I10 Essential (primary) hypertension; F03.90 Unspecified dementia, unspecified severity, without behavioral disturbance, psychotic disturbance, mood disturbance, and anxiety; E11.65 Type 2 diabetes mellitus with hyperglycemia; J44.9 Chronic obstructive pulmonary disease, unspecified; E83.41 Hypermagnesemia; I95.9 Hypotension, unspecified; G47.30 Sleep apnea, unspecified; E78.00 Pure hypercholesterolemia, unspecified; E78.5 Hyperlipidemia, unspecified; R06.00 Dyspnea, unspecified; E66.9 Obesity, unspecified; Z68.32 Body mass index [BMI] 32.0-32.9, adult; Z74.01 Bed confinement status

== ENCOUNTER 2019-03-08 16:51 | Inpatient (IN) | payer OTHER ==
[2019-03-08 17:48] VITALS: BMI 33.7
[2019-03-08] MEDS ORDERED: Albuterol-Ipratrop 3 mg / 0.5 (3 ml) UD IH PRN (17:55)
[2019-03-08] MEDS ORDERED: MELATONIN 5 MG PO SCH (22:00)
[2019-03-08] MEDS ORDERED: MELATONIN 3 MG PO SCH (22:00)
[2019-03-08] MEDS: Melatonin 3 MG Tab PO SCH (22:08)
[2019-03-08] MEDS: Insulin Reg-LOW-Coverage SC SCH (22:18)
[2019-03-08] MEDS ORDERED: Pneumococcal 23-Valent Vaccine IM ONE (23:21)
[2019-03-09] MEDS: Enoxaparin 40 mg Syringe SC SCH (05:39)
[2019-03-09] MEDS: cefTRIAXone 1 gm 1 GM/100 ML BAG IVPB SCH (05:39)
[2019-03-09] MEDS: Insulin Reg-LOW-Coverage SC SCH ×4 (06:47→22:30)
[2019-03-09 07:06] LABS: HEMOGLOBIN 11.2 g/dL (12.0-16.0); MEAN CELL VOLUME 83.9 fl (80.0-105.0); MEAN CORPUSCULAR HEMOGLOBIN 25.7 pg (25.0-35.0); MEAN CORPUSCULAR HGB CONC 30.7 g/dl (31.0-37.0); MEAN PLATELET VOLUME 9.6 fl (7.0-11.0); RBC 4.35 10^6/uL (3.5-6.1); RED CELL DISTRIBUTION WIDTH 15.7 % (11.5-14.5); WHITE BLOOD COUNT 8.6 10^3/uL (4.5-11.0)
[2019-03-09 07:23] LABS: BLOOD UREA NITROGEN 17 mg/dL (7-21); CALCIUM 8.9 mg/dL (8.4-10.5); GFR NON-AFRICAN AMERICAN > 60
[2019-03-09] MEDS ORDERED: MULTIVITAMIN PO SCH (10:00)
--- NOTE | 2019-03-09 11:40 | CON ---
DATE: 03/09/2019 PULMONARY CONSULT NOTE REFERRING PHYSICIAN: Narda Shaw MD. REASON FOR CONSULT: COPD. HISTORY OF PRESENT ILLNESS: This is an 88-year-old female with past medical history significant for dementia, hypertension, hyperlipidemia, asthma, COPD, hypercholesteremia and hypertension. The patient initially came into emergency room brought in by EMS due to reports of the patient gasping for air when EMS arrived to the patient's home, they determined that the patient had no shortness of breath and had normal vital signs and daughter had reported that this gasping for air occurred while the patient was asleep. At this time, the patient is admitted to [facility] unit for rehabilitation, seem lying in bed. Daughter at bedside. No acute distress. No complaints reported. PAST MEDICAL HISTORY: As per history of present illness. ALLERGIES: NO KNOWN DRUG ALLERGIES. FAMILY HISTORY: No significant cardiopulmonary disease reported. SOCIAL HISTORY: Nonsmoker. No EtOH abuse. No illicit drug use. REVIEW OF SYSTEMS: Reports feeling well today. No headache, rhinitis, cough, shortness of breath, chest pain, abdominal pain, nausea, vomiting, diarrhea, leg pain or leg swelling reported. MEDICATIONS: Reviewed. Tylenol 325 mg every 4 hours p.r.n. for mild pain, DuoNeb 3 mL inhalation every 6 hours p.r.n., Norvasc 10 mg daily, Lipitor 20 mg at bedtime, Rocephin 1 g daily, Colace 100 mg daily, Aricept 10 mg at bedtime, Lovenox 40 mg subcutaneous daily, Pepcid 20 mg at bedtime, Humulin R sliding scale a.c. and at bedtime, lisinopril 10 mg daily, melatonin 3 mg at bedtime, metformin 500 mg twice a day, multivitamin 1 tab daily and Senokot 8.6 mg at bedtime. PHYSICAL EXAMINATION: GENERAL: No acute distress. VITAL SIGNS: Blood pressure 123/52, pulse 55 and temperature 98. HEENT: Moist mucous membrane. Crowded airway. NECK: Supple. No JVD. Short and thick. RESPIRATORY: Fair airflow bilaterally. CARDIOVASCULAR: S1 and S2. ABDOMEN: Soft and nontender. No distention. No organomegaly. EXTREMITIES: No bilateral lower extremity edema. NEUROLOGIC: Awake, alert and verbal. Appears confusion. LABORATORY DATA: Reviewed. WBC 8.6, RBC 4.35, hemoglobin 11.2, hematocrit 36.5 and platelets 256. Sodium 140, potassium 4.3, chloride 108, carbon dioxide 27, anion gap 9, BUN 17, creatinine 0.7, GFR is greater than 60, random glucose 167 and calcium 8.9. IMPRESSION: Urinary tract infection, history of dementia, diabetes mellitus, chronic obstructive pulmonary disease, asthma, hypertension, hypercholesterolemia and suspected sleep apnea syndrome. Pulmonary point of view, continue as needed inhaled bronchodilators. The patient currently on antibiotic therapy. Gastric prophylaxis. Deep venous thrombosis prophylaxis. Echocardiogram shows ejection fraction 55.3, right ventricular systolic pressure 48, trace aortic regurgitation, mild mitral regurgitation, pulmonary hypertension, trace pulmonic valve regurgitation, mild valvular hear disease. We do suspect sleep apnea in this patient. Sleep apnea precaution, head of bed elevated at 45 degrees. We recommend the patient have sleep study as outpatient. Continue physical therapy. Fall precaution. The patient was seen and examined with Dr. Mccarty. Discussed assessment and plan as described above. The patient was seen and examined by Yael Martin, nurse practitioner. Discussed assessment and plan as described above. Thank you for this consult and we will follow with you. Yael Martin APN Carmelina Mccarty MD [place]
--- NOTE | 2019-03-09 13:42 | CON ---
DATE: 03/09/2019 LOCATION: The patient is in room 320, bed 1. REASON FOR CONSULTATION: Shortness of breath. HISTORY OF PRESENT ILLNESS: The patient is an 88-year-old female Citizen Of [place] speaking who was admitted to the floor with shortness of breath. The patient has history of COPD, asthma, obstructive sleep apnea, dementia, hypertension, high cholesterol, diabetes mellitus and urinary tract infection. The patient was treated on medical floor. Now she is admitted to Transitional Care Unit for deconditioning. The patient lying flat in bed without any chest pain, shortness of breath or palpitation. PAST MEDICAL HISTORY: Significant for hypertension, hyperlipidemia, COPD, asthma, obstructive sleep apnea, diabetes mellitus and hypertension. The patient is on admission to medical floor also found to be urinary tract infection. PERSONAL HISTORY: The patient denies smoking. Denies drinking. The patient's daughter present at the bedside and she is giving all the history. MEDICATIONS: At home; the patient was on Lipitor, Colace, Zestril, melatonin, amlodipine, multivitamin, lisinopril, Aricept, Pepcid, atorvastatin, and acetaminophen. ALLERGIES: THE PATIENT DENIES ANY ALLERGIES. REVIEW OF SYSTEMS: All the system reviewed; positives mentioned in the history, otherwise negative. PHYSICAL EXAMINATION: VITAL SIGNS: Blood pressure 144/57, respirations 18, pulse 55 and temperature 98. HEENT: Head is normocephalic. Eyes, pupil normal. Conjunctiva normal. NECK: JVP low. Carotid equal. THORAX: AP diameter normal. LUNGS: Clear. CARDIOVASCULAR: S1 and S2. ABDOMEN: Soft and nontender. No organomegaly. Bowel sounds normal. EXTREMITIES: No clubbing. No cyanosis. LABORATORY DATA: WBC 8.6, hemoglobin 11.2, hematocrit 36.5 and platelet 256. Sodium 142, potassium 4.3, BUN 17, creatinine 0.7, random sugar 167 and calcium 8.9. The patient had echo on the 03/07/2019 which showed normal size LV, normal systolic function left ventricular with ejection fraction 55%, transmitral Doppler flow showed grade III reversible restrictive diastolic dysfunction, trace aortic regurgitation, mild mitral regurgitation, RVSP 48 mmHg and mild hypertension. DIAGNOSES: Shortness of breath related to chronic obstructive pulmonary disease, asthma and obstructive sleep apnea. The patient also has hypertension, high cholesterol, diabetes mellitus, dementia, and recent examination on the medical floor was found to have urinary tract infection. PLAN: The patient is in transitional care unit now for deconditioning. We will start physical therapy. Clinically cardiac status seemed stable. Discussed the whole case with daughter who is at bedside. The patient is on Aricept 10 mg daily, Colace 100 mg daily, DuoNeb hand nebulizer therapy, metformin 500 twice a day, atorvastatin 20 daily, Lovenox 40 subcutaneous daily, melatonin 3 mg p.o. at bedtime, amlodipine 10 mg daily, Pepcid 20 mg at bedtime, ceftriaxone 1 g IV daily, lisinopril 10 mg daily. We will continue present therapy and we will follow with you. Carmelina Brush MD
[2019-03-09] MEDS: Multivitamin Therapeutic Tab PO SCH (15:25)
--- NOTE | 2019-03-09 18:58 | PN ---
H/p This case was discussed with Dr. Shaw she is inagreement with treatment plan. DATE: 03/09/2019 Cheif complaints: Shortness of breath SUBJECTIVE: The patient came in with dyspnea. Has past medical history of obesity, hypertension, hyperlipidemia. The patient is seen at the bedside, daughter at the bedside interpreting. The patient denies chest pain, shortness of breath, hematuria, hematochezia, fevers, or chills. Reports generalized pain in the legs and arms. Social History: Patient lives with daughter in community, denies ETOH history or nicotine dependence. NO KNOWN ALLERGIES MEDICATIONS REVIEWED BY ME PHYSICAL EXAMINATION VITAL SIGNS: Temperature 98.4, pulse rate 55, blood pressure 144/57, and respiratory rate 18. GENERAL: The patient appears chronically ill. HEENT: Normocephalic and atraumatic. PERRLA. Mucous membranes are moist. NECK: Supple. Normal inspection. No thyromegaly. RESPIRATORY: Clear to auscultation. No wheeze. No rhonchi. CARDIOVASCULAR: S1, S2. No JVD. No edema. ABDOMEN: Soft and distended. No guarding, no tenderness, no organomegaly. EXTREMITIES: Moving all extremities. SKIN: Intact. No cyanosis. No edema. NEUROLOGIC: Alert and oriented x3. [place] speaking. No cognitive deficits. MEDICATIONS: DuoNeb, Norvasc, Lipitor, Rocephin, Colace, donepezil, Lovenox, Pepcid, Accu-Chek a.c. and bedtime for insulin coverage, Zestril, melatonin, Glucophage, and Senokot. LABORATORY DATA: For 03/09/2019; white blood cells 8.6, hemoglobin 11.2, hematocrit 36.5, and platelet count 256. Sodium 140, potassium 4.3, BUN 17, creatinine 0.7. Random glucose today was 157. ASSESSMENT AND PLAN: The patient came in with dyspnea and at one point she was bradycardic pulse 57 clinical course was followed and NSS bolus 500 ml was given she was evaluated by Cardiology reviewed notes digoxin 0.125mg was added to medication list EF improved. Pulmonology was also on case; hemaglobin was elevated at 8.8 and metformin was started . Blood sugar today was 157 in the a.m. she continues with low blood sugar coverage. Gastric and deep venous thrombosis prophylaxis to continue. Now she is stable and has been transferred to [facility] for rehabilitation continues with physical therapy and occupational therapy; We will repeat labs and follow up. ABOVE PN ARE NOT PN , THIS IS H/P , ALL ABOVE NOTED , AGREED WITH COLLATOR TREATMENT PLAN . EDUCATION DONE . WILL F/U Kenton Bonilla APN Narda Shaw MD MTDLily
[2019-03-09] MEDS: Melatonin 3 MG Tab PO SCH (22:26)
[2019-03-10] MEDS: cefTRIAXone 1 gm 1 GM/100 ML BAG IVPB SCH (05:20)
[2019-03-10] MEDS: Enoxaparin 40 mg Syringe SC SCH (05:20)
[2019-03-10] MEDS: Insulin Reg-LOW-Coverage SC SCH ×4 (06:37→22:23)
[2019-03-10] MEDS: Multivitamin Therapeutic Tab PO SCH (10:04)
--- NOTE | 2019-03-10 10:36 | PN ---
DATE: 03/10/2019 PULMONARY PROGRESS NOTE REFERRING PHYSICIAN: Narda Shaw MD. SUBJECTIVE: The patient was seen. Lying in bed. No acute distress. No overnight events reported. No hemoptysis, hematosis, hematuria, diarrhea and leg swelling reported. OBJECTIVE: GENERAL: No acute distress. VITAL SIGNS: Blood pressure 129/57, pulse 52, temperature 98 and oxygen saturation 98. HEENT: Moist mucous membranes. Crowded airway. NECK: Supple. No JVD. Short and thick. RESPIRATORY: Fair airflow bilaterally. CARDIOVASCULAR: S1 and S2. ABDOMEN: Soft and nontender. No distention. No organomegaly. EXTREMITIES: No bilateral lower extremity edema. NEUROLOGIC: Awake, alert, and verbal. Confused. MEDICATIONS: Reviewed. Tylenol 325 mg every 4 hours p.r.n., DuoNeb 3 mL inhalation every 6 hours p.r.n., Norvasc 10 mg daily, Lipitor 20 mg at bedtime, Rocephin 1 g daily, Colace 100 mg daily, Aricept 10 mg at bedtime, Lovenox 40 mg subcutaneously daily, Pepcid 20 mg at bedtime, Humulin R sliding scale a.c. and at bedtime, lisinopril 10 mg daily, melatonin 3 mg at bedtime, metformin 500 mg twice a day, multivitamin one tablet daily and Senokot 8.6 mg at bedtime LABORATORY DATA: Reviewed. POC glucose 185. IMPRESSION AND PLAN: Urinary tract infection, history of dementia, diabetes mellitus, chronic obstructive pulmonary disease, asthma, pulmonary hypertension, hypertension, hypercholesterolemia,suspected sleep apnea syndrome, valvular heart disease. Pulmonary point of view, continue as needed inhaled bronchodilators, deep venous thrombosis prophylaxis, and gastric prophylaxis. The patient currently on antibiotic therapy for urinary tract infection. Recommend the patient have sleep study as outpatient to evaluate sleep apnea syndrome in the meanwhile sleep apnea precaution, head of bed elevated 45 degrees. Fall precaution. Continue physical therapy. The patient was seen and examined with Dr. Mccarty. Discussed assessment and plan as described above. The patient was seen and examined by Yael Martin, nurse practitioner. Discussed assessment and plan as described above. Thank you for this consult and we will follow with you. Yael Martin APN Carmelina Mccarty MD [facility] # [id number] [place]
--- NOTE | 2019-03-10 15:43 | PN ---
DATE: 03/10/2019 The patient was seen and examined at the bedside on 03/10/2019. SUBJECTIVE: The patient looking comfortable, sleepy and arousable, moving all four extremities. No fever. No chills. No hematemesis, hematochezia. No headache or dizziness. No chest pain. No palpitation. PHYSICAL EXAMINATION: VITAL SIGNS: Blood pressure 115/67, pulse 52, temperature 98, oxygen saturation 98%. HEENT: Head is normocephalic and atraumatic. Eyes; PERRLA. Extraocular muscles intact. Conjunctiva clear. Nose patent. Mucous membranes moist. NECK: Supple. No carotid bruits. No JVD or thyromegaly. CHEST: Bilaterally symmetrical. HEART: S1 and S2 positive. LUNGS: Clear to auscultation. ABDOMEN: Soft. Bowel sounds present. No organomegaly. EXTREMITIES: No edema. No cyanosis. NEUROLOGICAL: The patient is awake and alert. Moving all four extremities. No focal deficits. MEDICATIONS: Tylenol, DuoNeb, Norvasc, Lipitor, Colace, Aricept, Lovenox, Pepcid, sliding scale insulin, melatonin, metformin, and multivitamin. LABORATORY DATA: We do not have recent labs today, but I reviewed old labs. Glucose is 185. ASSESSMENT AND PLAN: Ms. Rio Henry is an 88-year-old lady with diabetes mellitus not controlled very well, urinary tract infection, history of dementia, chronic obstructive pulmonary disease, asthma, pulmonary hypertension, hypercholesteremia, sleep apnea syndrome, getting physical therapy. Gastrointestinal and deep venous thrombosis prophylaxis. The patient is currently on antibiotic, getting physical therapy, repeat labs. We will followup. Narda Shaw MD
--- NOTE | 2019-03-10 20:33 | HP ---
DATE OF EXAM: 03/10/2019 NOTE: Actually, the history and physical was dictated by my nurse practitioner, Kenton Bonilla on 03/09/2019. She pressed the button of progress note, but it was a history and physical. Please make a note that 03/09/2019, patient was seen and examined at the bedside by the nurse practitioner. This is not a progress note, this is a history and physical. For details, see notes from Kenton Bnoilla on 03/09/2019. Narda Shaw MD
[2019-03-10] MEDS: Melatonin 3 MG Tab PO SCH (21:04)
--- NOTE | 2019-03-10 22:36 | PN ---
DATE: 03/10/2019 REASON FOR CONSULTATION: Followup, shortness of breath. SUBJECTIVE: The patient has history of shortness of breath. PHYSICAL EXAMINATION: GENERAL: Not in apparent distress. Lying flat on the bed. VITAL SIGNS: Temperature afebrile, heart rate 52, and blood pressure 110/57. HEENT: PERRLA. Extraocular muscles intact. NECK: Supple. No carotid bruits. No thyromegaly. CHEST: Clear to auscultation. HEART: S1 and S2, regular. ABDOMEN: Soft. EXTREMITIES: Clubbing and cyanosis, negative. LABORATORY DATA: Blood workup as of yesterday, hemoglobin 11 and hematocrit 36.5. Blood sugar 190. IMPRESSION: An 88-year-old female with history of chronic obstructive pulmonary disease, asthma, obstructive sleep apnea, hypertension, hyperlipidemia, diabetes, dementia, urinary tract infection, and shortness of breath. RECOMMENDATION: Continue transitional care unit. Continue rehab. Continue Colace. Continue the nebulizer treatment. Continue Aricept. Continue metformin. Continue Lovenox. We will follow with you. Thank you Dr. Shaw for providing us the opportunity in taking care of the patientRio. Carmelina Ding MD
[2019-03-11] MEDS: cefTRIAXone 1 gm 1 GM/100 ML BAG IVPB SCH (05:19)
[2019-03-11] MEDS: Enoxaparin 40 mg Syringe SC SCH (05:20)
[2019-03-11] MEDS: Insulin Reg-LOW-Coverage SC SCH ×3 (07:05→16:30)
[2019-03-11] MEDS: Multivitamin Therapeutic Tab PO SCH (09:52)
--- NOTE | 2019-03-11 21:28 | PN ---
DATE: 03/11/2019 PULMONARY PROGRESS NOTE REFERRING PHYSICIAN: Narda Shaw MD SUBJECTIVE: She is lying in the bed. Family at bedside. Night was unremarkable. Was in the chair. Upper back some discomfort. No nausea, no vomiting, no diarrhea. No leg pain or leg swelling. OBJECTIVE: GENERAL: No acute distress. VITAL SIGNS: Temperature is 98, heart is 58, respiratory rate is 20, blood pressure 131/63 and pulse ox 95% on room air. HEENT: Moist mucous membranes. No ulcer or thrush noted. NECK: Supple. No JVD. LUNGS: Has a fair airflow. HEART: S1 and S2. ABDOMEN: Soft and nontender. No organomegaly. EXTREMITIES: No edema. NEUROLOGIC: Awake and alert. Follows simple commands. Does have upper back tenderness with palpation. MEDICATIONS: She is on Aricept 10 mg daily, Colace 100 mg twice a day, DuoNeb every 6 hours p.r.n., metformin 5 mg twice a day, insulin coverage, Lipitor 20 mg at bedtime, Lovenox 40 mg subcutaneously daily, melatonin 3 mg at bedtime, Norvasc 10 mg daily, Pepcid 20 mg daily, Rocephin 1 g IV daily, multivitamins daily, Tylenol p.r.n. basis and Zestril 10 mg daily. LABORATORY DATA: Showed blood sugar this morning was 309. IMPRESSION AND PLAN: Urinary tract infection, dementia, diabetes, chronic obstructive lung disease, pulmonary hypertension, hypertension, hyperlipidemia, suspected sleep apnea syndrome, valvular heart disease, upper back muscular type pain. Spoke to family with several questions answered. Spoke to nursing staff. Lidocaine patch ordered. Tylenol p.r.n. Continue bronchodilators, antibiotics, sleep apnea precaution, avoid sedation, fall precautions. Outpatient consider attended sleep study. Thank you and we will follow with you. Carmelina Mccarty MD
[2019-03-11] MEDS: Melatonin 3 MG Tab PO SCH (21:31)
[2019-03-12] MEDS: Insulin Reg-LOW-Coverage SC SCH ×5 (00:23→22:02)
[2019-03-12] MEDS: Enoxaparin 40 mg Syringe SC SCH (05:23)
[2019-03-12] MEDS: cefTRIAXone 1 gm 1 GM/100 ML BAG IVPB SCH (05:23)
[2019-03-12] MEDS: Lidocaine 5% Patch TD SCH (10:11)
[2019-03-12] MEDS: Multivitamin Therapeutic Tab PO SCH (10:12)
--- NOTE | 2019-03-12 13:42 | PN ---
DATE: 03/12/2019 REASON FOR CONSULTATION AND FOLLOWUP: Shortness of breath. SUBJECTIVE: The patient denies any chest pain, lying flat on the bed. PHYSICAL EXAMINATION: GENERAL: Not in apparent distress. VITAL SIGNS: Temperature is afebrile. Heart rate 58 and blood pressure 131/63. HEENT: PERRLA. Extraocular muscles intact. NECK: Supple. No carotid bruits. No thyromegaly. CHEST: Clear to auscultation. HEART: S1 and S2, regular. ABDOMEN: Soft. EXTREMITIES: Clubbing and cyanosis negative. LABORATORY DATA: Blood workup as follows, WBC 8.6, hemoglobin 11.2, hematocrit 36.5 and platelet count 256. Chemistry shows sodium 140, potassium 4.3, chloride 108, carbon dioxide 27, anion gap of 9, BUN 17, creatinine 0.7, as of 03/09/2019. IMPRESSION: An 88-year-old female with past medical history significant for chronic obstructive pulmonary disease, asthma, obstructive sleep apnea, hypertension, hyperlipidemia, diabetes, dementia, urinary tract infection and shortness of breath. RECOMMENDATIONS: Continue transitional care unit. Continue rehab. Continue Colace. Continue the nebulizer treatment. Continue Aricept, Continue metformin. Continue Lovenox stable. Thank you for providing us the opportunity in taking care of the patient, Rio Alfonso. Carmelina Ding MD
[2019-03-12] MEDS: Melatonin 3 MG Tab PO SCH (21:22)
--- NOTE | 2019-03-12 21:50 | PN ---
DATE: 03/12/2019 PULMONARY PROGRESS NOTE REFERRING PHYSICIAN: Narda Shaw MD SUBJECTIVE: He is out of bed to chair, feels better. Has a Lidoderm patch on the shoulder. No nausea, vomiting, or diarrhea. No leg pair or leg swelling. OBJECTIVE: GENERAL: No acute distress. VITAL SIGNS: Temperature is 98, heart rate 58, respiratory is 20, blood pressure 118/37 and pulse ox 95% on room air. HEENT: Moist mucous membranes. Crowded airway. NECK: Supple. No JVD. LUNGS: Fair airflow with rhonchi. HEART: S1 and S2. ABDOMEN: Soft and nontender. No organomegaly. EXTREMITIES: There is no edema. NEUROLOGIC: Awake, alert, and follows simple commands. MEDICATIONS: She is on Aricept 10 mg at bedtime, Colace 100 mg daily, DuoNeb every 6 hours p.r.n., metformin 500 mg daily, insulin coverage, lidocaine patch affected area, Lipitor 20 mg daily, Lovenox 40 mg subcutaneously daily, melatonin 3 mg at bedtime, Norvasc 10 mg daily, Pepcid 20 mg at bedtime, Rocephin 1 g daily, Senokot p.r.n. basis, multivitamins daily and Zestril 10 mg daily. LABORATORY DATA: Reviewed. Shows blood sugar this morning 226. Microbiology is not available. IMPRESSION AND PLAN: Urinary tract infection, dementia, diabetes, chronic obstructive lung disease, pulmonary hypertension, hypertension, hyperlipidemia, suspected sleep apnea syndrome, valvular heart disease, upper back muscular fatigue and tenderness. Pulmonary point of view, she is doing well. Continue bronchodilator, keep head at 45 degrees. Lidocaine patch is placed on the upper back, continue therapy. Outpatient, consider sleep study, especially with the dementia, forgetfulness, high risk for sleep apnea. Thank you and we will follow with you. Carmelina Mccarty MD
--- NOTE | 2019-03-12 22:37 | PN ---
This case was discussed with Dr. Shaw she is inagreement with treatment plan. DATE: 03/12/2019 SUBJECTIVE: An 88-year-old female came in with urinary tract infection, diabetes mellitus, COPD, hyperlipidemia, and dementia. The patient is [place] speaking. Nurse to interpret. The patient denies chest pain, shortness of breath, abdominal pain, fevers or chills, hematuria, or hematochezia. PHYSICAL EXAMINATION: VITAL SIGNS: Temperature 98.4, pulse rate 58, blood pressure 131/63, and respiratory rate 20. The patient is saturating at 95% on room air. GENERAL: The patient appeared chronically ill. No acute distress. HEENT: Normocephalic and atraumatic. PERRLA. Mucous membranes moist. NECK: Supple. Normal inspection. No thyromegaly. RESPIRATORY: Clear to auscultation. Wheeze clear with cough. CARDIOVASCULAR: S1 and S2. No JVD. ABDOMEN: Soft and distended. No organomegaly. No guarding, no tenderness. EXTREMITIES: The patient is moving all extremities. No edema noted. NEUROLOGIC: The patient is alert and oriented x2 to 3 with some cognitive deficits. MEDICATIONS: Tylenol 325 mg, albuterol, Norvasc, and Lipitor. The patient continues on Rocephin, Colace, Aricept, Lovenox, and Pepcid. Before meals and at bedtime Accu-Cheks for insulin coverage. Lisinopril, Glucophage, and Senokot. LABORATORY DATA: No current laboratories. Last laboratory was for 03/09/2019. ASSESSMENT AND PLAN: Ms. Rio Alfonso is an 88-year-old female came in with urinary tract infection, diabetes mellitus, obesity, chronic obstructive pulmonary disease, and hyperlipidemia. The patient continues on Norvasc, Lipitor, metformin for insulin coverage and Zestril. The patient continues on Rocephin daily. The patient continues physical therapy. The patient remained afebrile. We will continue rehab and current medications. We will follow up. ALL ABOVE NOTED , AGREED WITH PLASTIC OUTFITTER TREATMENT PLAN , LABS ,MEDS AND CHART NOTED , EDUCATION DONE Kenton Bonilla APN Narda Shaw MD [facility] # [id number] [place]
[2019-03-13] MEDS: Enoxaparin 40 mg Syringe SC SCH (05:51)
[2019-03-13] MEDS: cefTRIAXone 1 gm 1 GM/100 ML BAG IVPB SCH (05:51)
[2019-03-13] MEDS: Insulin Reg-LOW-Coverage SC SCH ×4 (06:47→23:30)
[2019-03-13 07:51] LABS: HEMOGLOBIN 12.4 g/dL (12.0-16.0); MEAN CELL VOLUME 83.7 fl (80.0-105.0); MEAN CORPUSCULAR HEMOGLOBIN 26.2 pg (25.0-35.0); MEAN CORPUSCULAR HGB CONC 31.3 g/dl (31.0-37.0); MEAN PLATELET VOLUME 10.2 fl (7.0-11.0); RBC 4.73 10^6/uL (3.5-6.1); RED CELL DISTRIBUTION WIDTH 15.9 % (11.5-14.5); WHITE BLOOD COUNT 9.8 10^3/uL (4.5-11.0)
[2019-03-13 08:12] LABS: BLOOD UREA NITROGEN 27 mg/dL (7-21); CALCIUM 9.2 mg/dL (8.4-10.5); GFR NON-AFRICAN AMERICAN > 60
--- NOTE | 2019-03-13 08:54 | PN ---
DATE: 03/13/2019 PULMONARY PROGRESS NOTE REFERRING PHYSICIAN: Narda Shaw MD SUBJECTIVE: The patient is seen lying in bed. Daughter is at bedside. No acute distress. No overnight events reported. No headache, rhinitis, cough, shortness of breath, chest pain, abdominal pain, nausea, vomiting, diarrhea, leg pain or leg swelling reported. OBJECTIVE: GENERAL: No acute distress. VITAL SIGNS: Blood pressure 105/63, pulse 70, temperature 98.2 and oxygen saturation 94% on room air. HEENT: Moist mucous membranes. Crowded airway. NECK: Supple. No JVD. LUNGS: Fair airflow bilaterally. CARDIOVASCULAR: S1 and S2. ABDOMEN: Soft and nontender. No organomegaly. EXTREMITIES: No bilateral lower extremity edema. NEUROLOGIC: Awake and alert. Following simple commands. MEDICATIONS: Reviewed. Tylenol 325 every 4 hours p.r.n. for mild pain, DuoNeb 3 mL inhalation every 6 hours p.r.n., Norvasc 10 mg daily, Lipitor 20 mg at bedtime, Colace 100 mg daily, Aricept 10 mg at bedtime, Lovenox 40 mg daily, Pepcid 20 mg at bedtime, Humulin R sliding scale a.c. and at bedtime, Lidoderm patch transdermal daily, lisinopril 10 mg daily, melatonin 3 mg at bedtime, metformin 500 mg twice a day, multivitamin 1 tab daily and Senokot 8.6 mg at bedtime. LABORATORY DATA: Reviewed. WBC 9.8, RBC 4.73, hemoglobin 12.4, hematocrit 39.6 and platelets 290. POC glucose 216. IMPRESSION AND PLAN: Urinary tract infection, dementia, diabetes, chronic obstructive lung disease, pulmonary hypertension, hyperlipidemia, hypertension, suspected sleep apnea syndrome, valvular heart disease. Pulmonary point of view, continue inhaled bronchodilators and head of bed elevated at 45 degrees. Continue deep venous thrombosis prophylaxis and gastric prophylaxis. Continue physical therapy. Recommend the patient have sleep study as outpatient to evaluate for sleep apnea syndrome. The patient has dementia, forgetfulness and he is at high risk for sleep apnea. Fall precautions. BMP drawn today, results still pending. The patient was seen and examined with Dr. Mccarty. Discussed assessment and plan as described above. The patient was seen and examined by Yael Martin, nurse practitioner. Discussed assessment and plan as described above. Thank you for this consult and we will follow with you. Yael Martin APN Carmelina Mccarty MD
[2019-03-13] MEDS: Lidocaine 5% Patch TD SCH (10:56)
[2019-03-13] MEDS: Multivitamin Therapeutic Tab PO SCH (10:57)
--- NOTE | 2019-03-13 13:03 | PN ---
DATE: 03/13/2019 REASON FOR CONSULTATION AND FOLLOWUP: Shortness of breath. SUBJECTIVE: The patient denies any chest pain, shortness of breath and any palpitation. Daughter is at bedside and giving a bath to the patient. PHYSICAL EXAMINATION: VITAL SIGNS: Temperature afebrile. Heart rate 70 and blood pressure 105/63. HEENT: PERRLA. Extraocular muscles intact. NECK: Supple. No carotid bruits. No thyromegaly. CHEST: Clear to auscultation. HEART: S1 and S2, regular. ABDOMEN: Soft. EXTREMITIES: Clubbing and cyanosis, negative. LABORATORY DATA: Blood workup as follows, WBC 9.8, hemoglobin 12.4, hematocrit 39.6 and platelet count 290. Chemistry shows sodium 140, potassium 4.4, chloride 105, carbon dioxide 26, anion gap of 14, BUN 23 and creatinine 0.7. IMPRESSION: An 88-year-old female with past medical history significant for chronic obstructive pulmonary disease, asthma, obstructive sleep apnea, hypertension, hyperlipidemia, diabetes, dementia, urinary tract infection, shortness of breath. CV status is stable. Recent echo on 03/07/2019 revealed ejection fraction 55%, trace aortic regurgitation, mild mitral regurgitation, mild tricuspid regurgitation, right ventricular systolic pressure 48, mild pulmonary hypertension, trace pulmonary insufficiency, no pericardial effusion. RECOMMENDATIONS: Continue Aricept. Continue nebulizer treatment. Continue metformin. Continue lidocaine patch. Continue atorvastatin. Continue deep venous thrombosis prophylaxis. Continue lisinopril. CVS status is stable. We will follow with you. Since the patient is running low blood pressure, we will change lisinopril to 2.5 with holding parameters. Thank you for providing us the opportunity in taking care of the patient, Rio Henry. Carmelina Ding MD
[2019-03-13 16:55] VITALS: RESP 20
[2019-03-13] MEDS: Nystatin 100,000 Units/gm Topical Pow(15 gm) TOP SCH (17:41)
[2019-03-13] MEDS: Melatonin 3 MG Tab PO SCH ×2 (21:02→21:09)
--- NOTE | 2019-03-13 22:33 | PN ---
This case was discussed with Dr. Shaw she is inagreement with treatment plan. DATE: 03/13/2019 SUBJECTIVE: The patient came in with dyspnea. History of type 2 diabetes, obesity, hyperlipidemia, hypertension. I saw the patient today at the bedside. The patient's family is at the bedside. Daughter is interpreting. The patient denies chest pain. Denies shortness of breath, hematuria, hematochezia, fevers, or chills. PHYSICAL EXAMINATION: VITAL SIGNS: Temperature 98.5, pulse 60, blood pressure 110/44, and O2 sat is 94% on room air. GENERAL: The patient appears chronically ill. Looking comfortable. HEENT: Normocephalic, atraumatic. PERRLA. Mucous membranes moist. NECK: Supple. No thyromegaly. Normal inspection. RESPIRATORY: Clear to auscultation. No wheeze. No rhonchi. CARDIOVASCULAR: S1, S2. No JVD. ABDOMEN: Soft, distended. No organomegaly. EXTREMITIES: The patient is moving all extremities. No cyanosis. No edema. SKIN: Intact. NEUROLOGIC: The patient is alert and oriented x2 to 3. [place] speaking. MEDICATIONS: DuoNeb, Norvasc 10 mg p.o., Lipitor 20 mg daily, Colace 100 mg p.o. daily, Aricept 10 mg p.o. at bedtime, Lovenox 40 mg subcutaneous, Pepcid 20 mg, Accu-Cheks before meals and at bedtime insulin coverage, lidocaine patch, Zestril (lisinopril) 2.5 mg p.o. daily, melatonin 3 mg p.o. at bedtime, Glucophage 500 mg p.o. b.i.d., multivitamins, nystatin topical powder, Senokot. LABORATORY DATA: White blood cells 9.8, hemoglobin 12.4, hematocrit 39.6, platelet count 290. Chemistry: Sodium 140, potassium 4.4, BUN 27, GFR over 60, glucose today 207. ASSESSMENT AND PLAN: Mrs. Rio Alfonso is an 88-year-old female, came in with shortness of breath and dyspnea. The patient has dementia, hypertension, diabetes. Spoke to the daughter today. Daughter reported some redness in lower abdomen that was itchy. Ordered nystatin powder. The patient continues metformin, Zestril, Lipitor, DuoNeb treatment, Glucophage. Cardiology and Pulmonology are on the case. The patient also received diabetic education. The patient continues physical therapy and occupational therapy. We will follow up. ALL ABOVE NOTED , AGREED WITH WELDING SPECIALIST TREATMENT PLAN , LABS ,MEDS AND CHART NOTED , EDUCATION DONE, GETTING PT. OT Kenton Bonilla APN Narda Shaw MD [facility]
[2019-03-14] MEDS: Enoxaparin 40 mg Syringe SC SCH (05:17)
[2019-03-14] MEDS: Insulin Reg-LOW-Coverage SC SCH ×4 (06:40→22:12)
--- NOTE | 2019-03-14 09:08 | PN ---
DATE: 03/11/2019 SUBJECTIVE: The patient was seen and examined at the bedside on 03/11/2019. Looking comfortable. No fever, no chills, no hematuria, hematochezia. No headache or dizziness. No chest pain. No palpitations. No swelling of the leg. PHYSICAL EXAMINATION VITAL SIGNS: Temperature of 98, pulse of 80, respiratory rate of 20 and blood pressure 130/63. HEENT: Head is normocephalic and atraumatic. Eyes PERRLA. Extraocular muscles intact. Conjunctiva is clear. Nose patent. Mucous membranes moist. NECK: Supple. No carotid bruit. No JVD or thyromegaly. CHEST: Bilaterally symmetrical. HEART: S1 and S2 positive. LUNGS: Clear to auscultation. ABDOMEN: Soft, positive bowel sounds. No organomegaly. EXTREMITIES: No edema, no cyanosis. NEUROLOGIC: The patient is awake and alert, moving all 4 extremities. No focal deficits. MEDICATIONS: Aricept, Colace, DuoNeb, metformin, Lipitor, Lovenox, melatonin, Norvasc, Pepcid, Rocephin, Tylenol and Zestril. LABORATORY DATA: We do not have recent labs today, but I reviewed old labs. Sugar is 309. ASSESSMENT AND PLAN: an 88-year-old female with multiple medical problems and dementia, urinary tract infection, transferred from acute floor to transitional care unit, has diabetes mellitus, chronic obstructive pulmonary disease, pulmonary hypertension, peripheral hypertension, hypercholesterolemia, sleep apnea syndrome, valvular heart disease, degenerative joint disease, getting physical therapy, lidocaine patch and Tylenol provided. Repeat labs. We will followup. Narda Shaw MD [place]
[2019-03-14] MEDS: Lidocaine 5% Patch TD SCH (10:13)
[2019-03-14] MEDS: Nystatin 100,000 Units/gm Topical Pow(15 gm) TOP SCH ×2 (10:16→17:29)
[2019-03-14] MEDS: Multivitamin Therapeutic Tab PO SCH (10:16)
--- NOTE | 2019-03-14 13:20 | PN ---
DATE: 03/14/2019 PULMONARY PROGRESS NOTE REFERRING PHYSICIAN: Narda Shaw MD SUBJECTIVE: The patient is seen lying in bed. Daughter is at bedside. The patient is complaining of lower abdominal pain. Daughter and nursing staff report that the patient had bowel movements x2 yesterday. No headache, rhinitis, cough, shortness of breath, chest pain, nausea, vomiting, diarrhea, leg pain or leg swelling reported. OBJECTIVE: GENERAL: No acute distress. VITAL SIGNS: Blood pressure 153/68, pulse 72, temperature 98.5, and oxygen saturation 94% via nasal cannula. HEENT: Moist mucous membranes. Crowded airway. NECK: Supple. No JVD. LUNGS: Fair airflow bilaterally. CARDIOVASCULAR: S1 and S2. ABDOMEN: Soft, tender bilateral lower quadrants. EXTREMITIES: No bilateral lower extremity edema. NEUROLOGIC: Awake, alert, verbal. Following commands. MEDICATIONS: Reviewed. Tylenol 325 every 4 hours p.r.n., DuoNeb 3 mL inhalation every 6 hours p.r.n., Norvasc 10 mg daily, Lipitor 20 mg at bedtime, Colace 100 mg daily, Aricept 10 mg at bedtime, Lovenox 40 mg daily, Pepcid 20 mg at bedtime, Humulin R sliding scale a.c. and at bedtime, Lidoderm patch transdermal daily, lisinopril 10 mg daily, lisinopril 2.5 mg to start today, melatonin 3 mg at bedtime, metformin 500 mg twice a day, multivitamin 1 tab daily, nystatin topically twice a day to affected areas, and Senokot 8.6 mg at bedtime. LABORATORY DATA: Reviewed. POC glucose 231. IMPRESSION AND PLAN: Urinary tract infection, dementia, diabetes, chronic obstructive lung disease, pulmonary hypertension, hyperlipidemia, hypotension, suspected sleep apnea syndrome, valvular heart disease. Pulmonary point of view, continue inhaled bronchodilators, head of bed elevated at 45 degrees, deep venous thrombosis prophylaxis, gastric prophylaxis, and physical therapy. We will order bladder scan to be done. May straight cath if greater than 250. Recommend the patient have sleep study as outpatient to evaluate for sleep apnea syndrome. I do not believe the patient will be able to follow instructions for pulmonary function test to assess chronic lung disease. The patient was seen and examined with Dr. Mccarty. Discussed assessment and plan as described above. The patient was seen and examined by Prudence Mario, nurse practitioner. Discussed assessment and plan as described above. Thank you for this consult and we will follow with you. Yael Martin APN Carmelina Mccarty MD
--- NOTE | 2019-03-14 16:15 | US ---
Date of service: 03/14/2019 HISTORY: Pain in right quadrant COMPARISON: None. TECHNIQUE: Sonographic evaluation of the right upper quadrant of the abdomen. FINDINGS: LIVER: Measures 14.7 cm in length. Normal echogenicity of the liver parenchyma. No definite mass or intrahepatic bile duct dilatation. Normal directional main portal vein blood flow identified. GALLBLADDER: Gallbladder is not identified suggesting prior cholecystectomy or complete contraction. Technologist notes scarring at the region of the right upper quadrant potentially reflecting prior cholecystectomy. Clinically correlate further nevertheless. CBD caliber is dilated to 11.5 mm which could be related to prior cholecystectomy as well. No choledocholithiasis. If no cholecystectomy is proven clinically, than follow-up MRCP is advised. COMMON BILE DUCT: Measures 11.5 mm. No stones. No dilatation. PANCREAS: Extensive overlying bowel gas completely obscures the pancreas. RIGHT KIDNEY: Measures 7.5 cm in length. Normal echogenicity. No calculus, mass, or hydronephrosis. AORTA: Obscured by overlying gastrointestinal gas. IVC: Obscured by overlying gastrointestinal gas. OTHER FINDINGS: Incidentally, left kidney is atrophic a 7.3 cm greatest dimension without cyst or solid mass or hydronephrosis. IMPRESSION: 1. Potential prior cholecystectomy. The gallbladder is not identified. Alternately, the gallbladder may be completely contracted. The common bile duct measures 11.5 mm either prior cholecystectomy related or from other etiologies if there is no prior gallbladder resection. Follow-up clinical correlation is advised. MRCP is advised if there is no known prior cholecystectomy. 2. Atrophic right kidney without hydronephrosis or definitive mass. 3. Pancreas, abdominal aorta and inferior vena cava are obscured by gastrointestinal gas.
--- NOTE | 2019-03-14 17:01 | RAD ---
Date of service: 03/14/2019 HISTORY: Abdominal pain more in r right upper quadrant. COMPARISON: None available. TECHNIQUE: Three views obtained. FINDINGS: BOWEL: Several nondistended air-filled loops of small bowel seen in the left upper/mid abdomen nonspecific. Findings could represent localized ileus. No evidence to suggest acute mechanical bowel obstruction. Metallic suture material seen in the right lateral lower abdomen/pelvis region. BONES: Normal. OTHER FINDINGS: None. IMPRESSION: No evidence of acute mechanical bowel obstruction. Findings may represent localized nonspecific ileus as above.
--- NOTE | 2019-03-14 21:12 | PN ---
DATE: 03/14/2019 SUBJECTIVE: The patient was seen and examined at the bedside on 03/14/2019. Looking comfortable. No fever. No chills. No hematuria. No hematochezia. No headache or dizziness. No chest pain. No palpitation. The patient is a very poor historian. Complaining about constipation. PHYSICAL EXAMINATION: VITAL SIGNS: Blood pressure 153/68, pulse 72, temperature 98.5, oxygen saturation 94% on nasal cannula. HEENT: Head; normocephalic and atraumatic. Eyes; PERRLA. Extraocular muscles intact. Conjunctivae clear. Nose patent. Mucous membranes moist. NECK: Supple. No carotid bruits. No JVD or thyromegaly. CHEST: Bilaterally symmetrical. HEART: S1 and S2, positive. LUNGS: Clear to auscultation. ABDOMEN: Soft. Bowel sounds present. No organomegaly. EXTREMITIES: No edema. No cyanosis. NEUROLOGIC: The patient is awake and alert. Follows simple commands. MEDICATIONS: Tylenol, DuoNeb, Norvasc, Lipitor, Colace, Aricept, Lovenox, Pepcid, lisinopril, melatonin and metformin. LABORATORY DATA: We do not have recent labs today, but I reviewed old labs. Glucose is 231. ASSESSMENT AND PLAN: Ms. Elaine Alfonso is an 88-year-old lady with urinary tract infection, dementia, diabetes mellitus, chronic obstructive pulmonary disease, pulmonary hypertension, hypercholesteremia, sleep apnea syndrome, valvular heart disease recently. She is getting physical therapy. Constipation, MiraLax given. Gastrointestinal and deep venous thrombosis prophylaxis. Physical therapy. We will follow up. Narda Shaw MD
[2019-03-14] MEDS: Melatonin 3 MG Tab PO SCH (22:06)
[2019-03-15] MEDS: Enoxaparin 40 mg Syringe SC SCH (05:30)
[2019-03-15] MEDS: Insulin Reg-LOW-Coverage SC SCH ×4 (06:42→22:32)
--- NOTE | 2019-03-15 08:10 | PN ---
DATE: 03/14/2019 REASON FOR CONSULTATION AND FOLLOWUP: Shortness of breath. SUBJECTIVE: The patient denies any chest pain, shortness of breath, or any palpitation. The patient is not in apparent distress. Daughter is at the bedside. Complains of pain in right upper quadrant. PHYSICAL EXAMINATION: VITAL SIGNS: Temperature afebrile. Heart rate 72 and blood pressure 147/63. HEENT: PERRLA. Extraocular muscles intact. NECK: Supple. No carotid bruits. No thyromegaly. CHEST: Clear to auscultation. HEART: S1 and S2, regular. ABDOMEN: Soft. Mild tenderness in the right upper quadrant noted. LABORATORY DATA: Blood workup; WBC 9.8, hemoglobin 12.4, hematocrit 39.6 and platelet count 290. Chemistry shows sodium 140, potassium 4.4, chloride 105, carbon dioxide 26, anion gap of 14, BUN 24, creatinine 0.7. IMPRESSION: An 88-year-old female with past medical history significant for chronic obstructive pulmonary disease, hypertension, hyperlipidemia, diabetes, urinary tract infection, and shortness of breath. Cerebrovascular system status is stable. Last echo on 03/07/2019 revealed ejection fraction of 55%, trace aortic regurgitation, mild mitral regurgitation, mild tricuspid regurgitation, right ventricular systolic pressure 48, mild pulmonary hypertension, trace pulmonary insufficiency, no pericardial effusion noted. Now complaining of flank pain in right upper quadrant. We will get flat plate x-ray, also get ultrasound of the abdomen to rule out cholecystitis. The patient has baseline dementia. RECOMMENDATIONS: Continue Aricept. As mentioned above, we will get flat plate x-ray and ultrasound of her abdomen. Continue nebulizer treatment. Continue lidocaine patch. Continue atorvastatin. Continue deep venous thrombosis prophylaxis. Continue lisinopril. CVS status is stable. Lisinopril was changed to 2.5 mg because the patient was having low blood pressure. We will follow with you. Discussed with the patient's daughter, Humberto Bonilla. Carmelina Ding MD
[2019-03-15] MEDS: Lidocaine 5% Patch TD SCH (10:06)
[2019-03-15] MEDS: Multivitamin Therapeutic Tab PO SCH (10:07)
[2019-03-15] MEDS: Nystatin 100,000 Units/gm Topical Pow(15 gm) TOP SCH ×2 (10:07→17:33)
--- NOTE | 2019-03-15 13:59 | PN ---
DATE: 03/15/2019 REFERRING PHYSICIAN: Narda Shaw MD SUBJECTIVE: She is lying in the bed, head at 45 degrees. Night was unremarkable. No cough. No sputum production. Having short of breath on exertion. No nausea, vomiting, diarrhea, leg pain, or leg swelling. OBJECTIVE: VITAL SIGNS: Temperature is 98, heart rate is 65, respiratory rate is 20, blood pressure 124/65, pulse of 96% on room air. HEENT: Moist mucous membrane. Crowded airway. NECK: Supple. No JVD. LUNGS: Has fair airflow. HEART: S1 and S2. ABDOMEN: Soft and nontender. No organomegaly. EXTREMITIES: No edema. NEUROLOGIC: Awake and follows simple commands. LABORATORY DATA: Reveals blood sugar this morning 175. MEDICATIONS: She is on Aricept 10 mg h.s., Colace 100 mg twice a day, DuoNeb every 6 hours p.r.n., metformin 500 mg twice a day, insulin coverage, lidocaine patch affected area, Lipitor 20 mg h.s., Lovenox 40 mg subcu daily, melatonin 3 mg h.s., Norvasc 10 mg daily, Pepcid 20 mg h.s., Senokot p.r.n., multivitamins daily, Tylenol p.r.n., Zestril 10 mg daily which is on hold and now decreased to 2.5 mg daily. ASSESSMENT AND PLAN: Urinary tract infection, dementia, diabetes, chronic lung disease, pulmonary hypertension, hyperlipidemia, hypotension, suspected sleep apnea syndrome, valvular heart disease, renal insufficiency. Pulmonary point of view, doing well. Keep head at 45 degrees. Sleep apnea precautions. Bronchodilator, gastric prophylaxis, sequential compression device to lower extremity. We will order labs for the morning. I will follow. Carmelina Mccarty MD
--- NOTE | 2019-03-15 14:55 | PN ---
DATE: 03/15/2019 REASON FOR CONSULTATION AND FOLLOWUP: Shortness of breath. SUBJECTIVE: The patient denies any chest pain, shortness of breath, or any palpitation. Not in apparent distress. Lying flat on the bed. Daughter was at the bedside yesterday, discussed with her. PHYSICAL EXAMINATION: VITAL SIGNS: Temperature afebrile, heart rate 79 and blood pressure 124/65. HEENT: PERRLA. Extraocular muscles intact. NECK: Supple. No carotid bruits. No thyromegaly. CHEST: Clear to auscultation. HEART: S1 and S2, regular. ABDOMEN: Soft. EXTREMITIES: Clubbing and cyanosis negative. LABORATORY DATA: Blood workup as follows. As of 03/13/2019; WBC 9.8, hemoglobin 12.4, hematocrit 39.6 and platelet count 290. Chemistry shows sodium 140, potassium 4.4, chloride 105, carbon dioxide 26, anion gap of 14, BUN 26 and creatinine 0.7. IMPRESSION: An 88-year-old female with past medical history significant for chronic obstructive pulmonary disease, hypertension, hyperlipidemia, diabetes, urinary tract infection, and shortness of breath, now cardiovascular status is stable. Last echo 03/07/2019 revealed ejection fraction of 55%, trace aortic regurgitation, mild mitral regurgitation, mild tricuspid regurgitation, right ventricular systolic pressure 40, mild pulmonary hypertension, trace pulmonary insufficiency. No pericardial effusion noted. Complaining of flank pain. Yesterday, the patient underwent ultrasound of gallbladder and shows potential prior cholecystectomy is not identified. Alternately, the gallbladder completed contracted, common bile duct measured 11 mm with probably related to allergies. Atrophic right kidney with hydronephrosis with definite mass or definite mass atrophic without hydronephrosis. Pancreas is abnormal and inferior vena cava are obstructed by gastrointestinal gas. The patient did a flat plate of abdomen. No evidence of acute mechanical bowel obstruction or perforation noted. Essentially negative flat plate in the ultrasound. We will follow with you. Continue current treatment. CVS status is stable. Will sign off and glad to follow p.r.n. Continue rehab. Thank you Dr. Shaw for providing us the opportunity in taking care of the patient, Elaine Alfonso. Carmelina Ding MD [facility] # [id number]
[2019-03-15 17:02] VITALS: PULSE 66
[2019-03-15] MEDS: Melatonin 3 MG Tab PO SCH (21:40)
--- NOTE | 2019-03-16 00:46 | PN ---
This case was discussed with Dr. Shaw she is inagreement with treatment plan. DATE: 03/15/2019 SUBJECTIVE: This is an 88-year-old female with type 2 diabetes, obesity, dementia, hypertension, and COPD. I saw the patient today at the bedside. The patient is Romansh speaking, nurse interpreting. The patient is denying chest pain, shortness of breath, abdominal pain, hematuria, hematochezia, fevers, or chills. Does report back pain. PHYSICAL EXAMINATION: VITAL SIGNS: Temperature 97.9, pulse rate 66, blood pressure 104/66, respirations 20, and O2 sat is 99% on room air. GENERAL: The patient appears chronically ill. HEENT: Normocephalic and atraumatic. PERRLA. Mucous membranes moist. NECK: Supple. No thyromegaly. RESPIRATORY: Clear to auscultation. No wheeze. No rhonchi. CARDIOVASCULAR: S1 and S2. No JVD. ABDOMEN: Soft and distended. No guarding. No tenderness. No organomegaly. EXTREMITIES: The patient is moving extremities. No edema. SKIN: Intact. NEUROLOGIC: The patient is alert and oriented x2-3. Some cognitive deficit. MEDICATIONS: The patient continues on DuoNeb, Norvasc, Lipitor, Colace, Aricept, Lovenox, Pepcid, Humulin R a.c. and at bedtime, Accu-Cheks a.c. and at bedtime, Lidoderm patch, Zestril, melatonin, Glucophage, nystatin, Senokot, and Ultram. ASSESSMENT AND PLAN: Ms. Henry is an 88-year-old female with hypertension, chronic obstructive pulmonary disease, obesity, diabetes, and dementia. She continues on amlodipine, Lipitor, Aricept, and gastric and deep venous thrombosis prophylaxes. The patient in Transitional Care Unit, receiving physical therapy daily. Reported pain after physical therapy according to relay dispatcher from walking too much. According to nurse, the patient does really well with physical therapy has complaints of pain which Tylenol in not effective, so tramadol 50 mg t.i.d. p.r.n. was ordered for today. We will repeat labs for the a.m. and follow up with the patient. ALL ABOVE NOTED , AGREED WITH [employer]AIR TREATMENT PLAN , EDUCATION DONE , WILL CONT. SAME TREATMENT , WILL F/U Kenton Bonilla APN Narda Shaw MD [facility]
[2019-03-16] MEDS: Enoxaparin 40 mg Syringe SC SCH (06:32)
[2019-03-16] MEDS: Insulin Reg-LOW-Coverage SC SCH ×4 (07:26→22:00)
[2019-03-16 07:27] LABS: ALBUMIN 3.3 g/dL (3.0-4.8); ALT/SGPT 28 U/L (7-56); AST/SGOT 18 U/L (14-36); BLOOD UREA NITROGEN 21 mg/dL (7-21); CALCIUM 9.1 mg/dL (8.4-10.5); GFR NON-AFRICAN AMERICAN > 60
[2019-03-16] MEDS: Lidocaine 5% Patch TD SCH (09:48)
[2019-03-16] MEDS: Multivitamin Therapeutic Tab PO SCH (09:49)
[2019-03-16] MEDS: Nystatin 100,000 Units/gm Topical Pow(15 gm) TOP SCH ×2 (09:50→17:37)
--- NOTE | 2019-03-16 11:16 | PN ---
DATE: 03/16/2019 PULMONARY PROGRESS NOTE REFERRING PHYSICIAN: Dr. Narda Shaw. SUBJECTIVE: The patient is seen sitting in chair in room. No acute distress. No overnight events reported. No headache, rhinitis, cough, shortness of breath, chest pain, abdominal pain, nausea, vomiting, diarrhea, leg pain, or leg swelling reported. OBJECTIVE: GENERAL: No acute distress. VITAL SIGNS: Blood pressure 124/75, pulse 66, temperature 97.9, and oxygen saturation 99% on room air. HEENT: Moist mucous membranes. Crowded airway. NECK: Supple. No JVD. LUNGS: Fair airflow bilaterally. CARDIOVASCULAR: S1 and S2. ABDOMEN: Soft and nontender. No distention. No organomegaly. EXTREMITIES: No bilateral lower extremity edema. NEUROLOGIC: Awake, alert, and verbal; following commands. MEDICATIONS: Reviewed. Tylenol 325 every 4 hours p.r.n., DuoNeb 3 mL inhalation every 6 hours p.r.n., Norvasc 10 mg daily, Lipitor 20 mg at bedtime, Colace 100 mg daily, Aricept 10 mg at bedtime, Lovenox 40 mg daily, Pepcid 20 mg at bedtime, Humulin R sliding scale a.c. and at bedtime, Lidoderm patch transdermal daily to affected area, lisinopril 10 mg daily on hold and lisinopril 2.5 mg daily, melatonin 3 mg at bedtime, metformin 500 mg twice a day, multivitamin 1 tab daily, nystatin topical powder topically twice a day to affected areas, Senokot 8.6 mg at bedtime, and tramadol 50 mg three times a day. LABORATORY DATA: Reviewed. POC glucose 253. Sodium 140, potassium 4.2, chloride 104, carbon dioxide 29, anion gap 11, BUN 21, creatinine 0.7, GFR greater than 60, and random glucose 179. Calcium 9.1, total bilirubin 0.2, AST 18, ALT 28, alkaline phosphatase 91, total protein 6.5, albumin 3.3, globulin 3.2, and albumin-globulin ratio 1.0. Abdominal x-ray showed no evidence of acute mechanical bowel obstruction. Gallbladder ultrasound showed the pancreas abdominal aorta inferior vena cava are obscured by gastrointestinal gas, atrophic right kidney without hydronephrosis or definitive mass, and potential prior cholecystectomy, gallbladder not identified. IMPRESSION AND PLAN: Urinary tract infection, dementia, diabetes mellitus, chronic lung disease, pulmonary hypertension, hyperlipidemia, hypotension, suspected sleep apnea syndrome, valvular heart disease, and renal insufficiency. Pulmonary point of view, sleep apnea precaution, head of bed elevated at 45 degrees, gastric prophylaxis, deep venous thrombosis prophylaxis, and fall precautions. Continue inhaled bronchodilators. Recommend the patient have sleep study as outpatient to evaluate for sleep apnea syndrome. The patient was seen and examined with Dr. Mccarty. Discussed assessment and plan as described above. The patient was seen and examined by Yael Martin, nurse practitioner. Discussed assessment and plan as described above. Thank you for this consult. We will follow with you. Yael Martin APN Carmelina Mccarty MD [facility]
[2019-03-16 17:06] VITALS: BP 116/67; TEMP 98.2; O2SAT 94
[2019-03-16] MEDS: Melatonin 3 MG Tab PO SCH (21:16)
== END 2019-03-17 00:13 | disposition home or self-care (01) | DRG 690 ==
LOC: TRCU 16:51
PROVIDERS: ADMIT Internal Medicine; ATTEND Internal Medicine
PROC: F07L6YZ Therapeutic Exercise Treatment of Musculoskeletal System - Lower Back / Lower Extremity using Other Equipment (ICD-10-PCS; 2019-03-10)
PROC: F08Z1FZ Dressing Techniques Treatment using Assistive, Adaptive, Supportive or Protective Equipment (ICD-10-PCS; 2019-03-11)
PROC: F08Z2FZ Grooming/Personal Hygiene Treatment using Assistive, Adaptive, Supportive or Protective Equipment (ICD-10-PCS; 2019-03-11)
PROC: F07Z9FZ Gait Training/Functional Ambulation Treatment using Assistive, Adaptive, Supportive or Protective Equipment (ICD-10-PCS; principal; 2019-03-12)
PROC: F07Z8FZ Transfer Training Treatment using Assistive, Adaptive, Supportive or Protective Equipment (ICD-10-PCS; 2019-03-12)
PROC: F08Z3FZ Feeding/Eating Treatment using Assistive, Adaptive, Supportive or Protective Equipment (ICD-10-PCS; 2019-03-12)
DX: N39.0 Urinary tract infection, site not specified (principal); F03.90 Unspecified dementia, unspecified severity, without behavioral disturbance, psychotic disturbance, mood disturbance, and anxiety; I10 Essential (primary) hypertension; I27.20 Pulmonary hypertension, unspecified; E11.9 Type 2 diabetes mellitus without complications; I08.3 Combined rheumatic disorders of mitral, aortic and tricuspid valves; J44.9 Chronic obstructive pulmonary disease, unspecified; G47.33 Obstructive sleep apnea (adult) (pediatric); E78.00 Pure hypercholesterolemia, unspecified; E78.5 Hyperlipidemia, unspecified; K59.00 Constipation, unspecified; M19.90 Unspecified osteoarthritis, unspecified site; N26.1 Atrophy of kidney (terminal); E66.9 Obesity, unspecified; Z68.33 Body mass index [BMI] 33.0-33.9, adult